=== PATIENT | male | born 1960 | race Caucasian/White ===

== ENCOUNTER 2018-09-10 23:55 | Emergency (ER) | payer SELFPAY ==
[2018-09-11] MEDS ORDERED: IBUPROFEN 400 MG TAB ONE (01:08)
--- NOTE | 2018-09-11 02:46 | ER ---
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 tylenol ak1 at 2230. Transition of care: patient was not received from another setting of care. Onset of symptoms is unknown. Risk Assessment: Do you want to hurt yourself or someone else? Patient reports no desire to harm self or others. Initial Sepsis Screen: Does the patient meet any 2 criteria? No. Patient's initial sepsis screen is negative. Does the patient have a suspected source of infection? No. Patient's initial sepsis screen is negative. Care prior to arrival: None. 00:50 Method Of Arrival: Ambulatory ak1 00:50 Acuity: JASON 4 ak1 Triage Assessment: 00:52 General: Appears in no apparent distress. Behavior is calm, cooperative. Pain: ak1 Complains of pain in headache. EENT: No signs and/or symptoms were reported regarding the EENT system. Neuro: Level of Consciousness is awake, alert, obeys commands, Oriented to person, place, time, situation, Highway Painter are equal bilaterally Moves all extremities. Gait is steady, Speech is normal. Cardiovascular: No deficits noted. Respiratory: Reports cough that is. GI: No signs and/or symptoms were reported involving the gastrointestinal system. : No signs and/or symptoms were reported regarding the genitourinary system. Derm: No signs and/or symptoms reported regarding the dermatologic system. Musculoskeletal: No signs and/or symptoms reported regarding the musculoskeletal system. Historical: - Allergies: 00:52 No Known Allergies; ak1 - Home Meds: 00:52 Lexapro 10 mg Oral tab 1 tab once daily [Active]; Xanax Oral as needed for Anxiety ak1 [Active]; - PMHx: 00:52 Anxiety; ak1 - PSHx: 00:52 Hernia repair; ak1 - Immunization history:: Adult Immunizations unknown, Flu vaccine is up to date. - Social history:: Smoking status: Patient/guardian denies using tobacco. - Ebola Screening: : No symptoms or risks identified at this time. Screenin:55 Abuse screen: Denies threats or abuse. Denies injuries from another. Nutritional ak1 screening: No deficits noted. Tuberculosis screening: No symptoms or risk factors identified. Fall Risk None identified. Assessment: 00:56 Reassessment: Patient appears in no apparent distress at this time. No changes from ak1 previously documented assessment. see triage assessment. 02:31 Reassessment: Patient appears in no apparent distress at this time. No changes from ak1 previously documented assessment. Patient is alert, oriented x 3, equal unlabored respirations, skin warm/dry/pink. pt took 1 gram of his home Tylenol. 03:00 Reassessment: Patient appears in no apparent distress at this time. No changes from ak1 previously documented assessment. Vital Signs: 00:08 BP 112 / 72; Pulse 92; Resp 18; Temp 101.5; Pulse Ox 92% on R/A; em1 00:52 BP 117 / 72; Pulse 87; Resp 18; Pulse Ox 96% on R/A; ak1 01:30 BP 125 / 69; Pulse 85; Resp 18; Pulse Ox 95% on R/A; ak1 01:39 Temp 100.6(O); ak1 03:00 BP 111 / 62; Pulse 82; Resp 18; Temp 99.1; Pulse Ox 95% on R/A; Pain 0/10; ak1 ED Course: 09/10 23:57 Patient arrived in ED. tl2 09/11 00:06 Fabio Baker NP is PHCP. pm1 00:06 Antelmo Salcedo MD is Attending Physician. pm1 00:26 Carmella Sandoval, ZAIN is Primary Nurse. ak1 00:27 Patient moved to radiology via wheelchair. sg4 00:34 X-ray completed. Patient tolerated procedure well. sg4 00:34 Patient moved back from radiology. sg4 00:34 Chest Pa And Lat (2 Views) XRAY In Process Unspecified. EDMS 00:51 Triage completed. ak1 00:52 Arm band placed on Patient placed in an exam room, on a stretcher, Patient notified of ak1 wait time. 00:55 Patient has correct armband on for positive identification. Bed in low position. Call ak1 light in reach. Adult w/ patient. Pulse ox on. NIBP on. 01:29 No provider procedures requiring assistance completed. ak1 03:05 Patient did not have IV access during this emergency room visit. ak1 Administered Medications: 01:04 Drug: Ibuprofen 800 mg Route: PO; ak1 01:26 Follow up: Response: No adverse reaction ak1 Outcome: 02:45 Discharge ordered by MD. pm1 03:05 Discharged to home ambulatory, with family. ak1 03:05 Condition: good 03:05 Discharge instructions given to patient, family, Instructed on discharge instructions, follow up and referral plans. Demonstrated understanding of instructions, follow-up care. 03:05 Patient left the ED. ak1 Signatures: Dispatcher [employer] EDCorby Alva em1 Carmella Sandoval RN RN ak1 Fabio Baker, SHANIQUA TREAD BOOKER pm1 Payton Moss RN RN tl2 Abigail Mora sg4
--- NOTE | 2018-09-11 02:46 | EDPHYS ---
Physician Documentation [facility] Name: Galen Steele Age: 58 yrs Sex: Male : 1960 Arrival Date: 09/10/2018 Time: 23:57 Bed 5 Private MD: ED Physician Antelmo Salcedo HPI: 09/11 01:56 This 58 yrs old Male presents to ER via Ambulatory with complaints of Fever. pm1 01:56 The patient reports fever, that was measured at 101 degrees Fahrenheit. Onset: The pm1 symptoms/episode began/occurred 3 day(s) ago. Associated signs and symptoms: Pertinent positives: cough, headache, sore throat, Pertinent negatives: abdominal pain, backache, chest pain, diarrhea, earache, skin rash, shortness of breath, vomiting. Severity of symptoms: in the emergency department the symptoms are unchanged. The patient has not recently seen a physician. Historical: - Allergies: 00:52 No Known Allergies; ak1 - Home Meds: 00:52 Lexapro 10 mg Oral tab 1 tab once daily [Active]; Xanax Oral as needed for Anxiety ak1 [Active]; - PMHx: 00:52 Anxiety; ak1 - PSHx: 00:52 Hernia repair; ak1 - Immunization history:: Adult Immunizations unknown, Flu vaccine is up to date. - Social history:: Smoking status: Patient/guardian denies using tobacco. - Ebola Screening: : No symptoms or risks identified at this time. ROS: 01:56 Eyes: Negative for injury, pain, redness, and discharge. pm1 01:56 Neck: Negative for injury, pain, and swelling, Cardiovascular: Negative for chest pain, palpitations, and edema. 01:56 Abdomen/GI: Negative for abdominal pain, nausea, vomiting, diarrhea, and constipation, Back: Negative for injury and pain, : Negative for injury, bleeding, discharge, and swelling, MS/Extremity: Negative for injury and deformity, Skin: Negative for injury, rash, and discoloration, Neuro: Negative for headache, weakness, numbness, tingling, and seizure. 01:56 Constitutional: Positive for fever, Negative for body aches, poor PO intake. 01:56 ENT: Positive for sore throat, Negative for ear pain, dental pain, difficulty swallowing, difficulty handling secretions, hoarseness. 01:56 Respiratory: Positive for cough, Negative for shortness of breath, sputum production, wheezing. Exam: 01:56 Constitutional: This is a well developed, well nourished patient who is awake, alert, pm1 and in no acute distress. Head/Face: Normocephalic, atraumatic. Eyes: Pupils equal round and reactive to light, extra-ocular motions intact. Lids and lashes normal. Conjunctiva and sclera are non-icteric and not injected. Cornea within normal limits. Periorbital areas with no swelling, redness, or edema. 01:56 Neck: Trachea midline, no thyromegaly or masses palpated, and no cervical lymphadenopathy. Supple, full range of motion without nuchal rigidity, or vertebral point tenderness. No Meningismus. Chest/axilla: Normal chest wall appearance and motion. Nontender with no deformity. No lesions are appreciated. Cardiovascular: Regular rate and rhythm with a normal S1 and S2. No gallops, murmurs, or rubs. Normal PMI, no JVD. No pulse deficits. Respiratory: Lungs have equal breath sounds bilaterally, clear to auscultation and percussion. No rales, rhonchi or wheezes noted. No increased work of breathing, no retractions or nasal flaring. Abdomen/GI: Soft, non-tender, with normal bowel sounds. No distension or tympany. No guarding or rebound. No evidence of tenderness throughout. Back: No spinal tenderness. No costovertebral tenderness. Full range of motion. Skin: Warm, dry with normal turgor. Normal color with no rashes, no lesions, and no evidence of cellulitis. MS/ Extremity: Pulses equal, no cyanosis. Neurovascular intact. Full, normal range of motion. 01:56 ENT: External ear(s): are unremarkable, Ear canal(s): are normal, TM's: are normal, Nose: is normal, Mouth: is normal, Posterior pharynx: Airway: no evidence of obstruction, patent, Tonsils: bilaterally enlarged, with erythema, no exudate, no ulcerations, erythema, peritonsillar mass, is not appreciated, pooling of secretions, is not appreciated. 01:56 Neuro: Orientation: is normal, Motor: is normal, moves all fours, Gait: is steady, at a normal pace, without difficulty. Vital Signs: 00:08 BP 112 / 72; Pulse 92; Resp 18; Temp 101.5; Pulse Ox 92% on R/A; em1 00:52 BP 117 / 72; Pulse 87; Resp 18; Pulse Ox 96% on R/A; ak1 01:30 BP 125 / 69; Pulse 85; Resp 18; Pulse Ox 95% on R/A; ak1 01:39 Temp 100.6(O); ak1 03:00 BP 111 / 62; Pulse 82; Resp 18; Temp 99.1; Pulse Ox 95% on R/A; Pain 0/10; ak1 MDM: 00:13 Patient medically screened. pm1 02:27 Data reviewed: vital signs. Data interpreted: Pulse oximetry: on room air is 95 %. pm1 Interpretation: normal. 02:45 Counseling: I had a detailed discussion with the patient and/or guardian regarding: the pm1 historical points, exam findings, and any diagnostic results supporting the discharge/admit diagnosis, lab results, radiology results, the need for outpatient follow up, to return to the emergency department if symptoms worsen or persist or if there are any questions or concerns that arise at home. 09/11 00:54 Order name: Flu; Complete Time: 01:30 pm1 09/11 01:52 Order name: Strep pm1 09/11 00:14 Order name: Chest Pa And Lat (2 Views) XRAY pm1 09/11 01:53 Order name: Group A Streptococcus Rapid Sc; Complete Time: 02:44 EDMS 09/11 02:33 Order name: Throat Culture EDMS Administered Medications: 01:04 Drug: Ibuprofen 800 mg Route: PO; ak1 :26 Follow up: Response: No adverse reaction ak1 Disposition: 05:49 Co-signature as Attending Physician, Antelmo Salcedo MD. pkl Disposition: 09/11/18 02:45 Discharged to Home. Impression: Acute upper respiratory infection, unspecified. - Condition is Stable. - Discharge Instructions: Antibiotic Resistance, Upper Respiratory Infection, Adult, Viral Respiratory Infection. - Medication Reconciliation Form, Thank You Letter, Antibiotic Education form. - Follow up: Emergency Department; When: As needed; Reason: Worsening of condition. Follow up: Private Physician; When: 2 - 3 days; Reason: Recheck today's complaints, Continuance of care, Re-evaluation by your physician. - Problem is new. - Symptoms have improved. Signatures: Dispatcher [employer] EDAntelmo Torres MD MD pkl Krenek, Amber RN RN ak1 Fabio Baker, SENIOR TELECOMMUNICATIONS ENGINEER SENIOR TELECOMMUNICATIONS ENGINEER pm1 Corrections: (The following items were deleted from the chart) 03:05 02:45 09/11/2018 02:45 Discharged to Home. Impression: Acute upper respiratory ak1 infection, unspecified. Condition is Stable. Discharge Instructions: Antibiotic Resistance, Upper Respiratory Infection, Adult, Viral Respiratory Infection. Forms are Medication Reconciliation Form, Thank You Letter, Antibiotic Education, Prescription Opioid Use. Follow up: Emergency Department; When: As needed; Reason: Worsening of condition. Follow up: Private Physician; When: 2 - 3 days; Reason: Recheck today's complaints, Continuance of care, Re-evaluation by your physician. Problem is new. Symptoms have improved. pm1
[2018-09-11 03:34] VITALS: O2SAT 95
[2018-09-11 03:37] VITALS: BP 111/62; TEMP 99.1
--- NOTE | 2018-09-11 08:14 | RAD REPORT ---
EXAM DESCRIPTION: RAD - Chest Pa And Lat (2 Views) - 09/11/2018 12:35 am CLINICAL HISTORY: Cough, fever COMPARISON: April 2013, March 2008 TECHNIQUE: PA and lateral views of the chest were obtained. FINDINGS: The lungs are clear of mass, consolidation or failure. Lung markings are fractionally inc reased over this long interval. This may be progressive interstitial disease or a minimal interstitia l infiltrate. This is a very minimal finding. Heart size is normal and central vasculature is within normal limits. No pleural effusion or pneumothorax seen. No acute bony finding noted. No aortic ab normality. IMPRESSION: No mass, consolidation or significant pulmonary process. Interstitial markings are fractionally increased over 2012. This could be progression in lung disease or a minimal interstitial edema or infiltrate.
== END 2018-09-11 03:05 | disposition home or self-care (01) ==
LOC: ER 23:55
DX: J06.9 Acute upper respiratory infection, unspecified (principal); R41.9 Unspecified symptoms and signs involving cognitive functions and awareness; Z79.899 Other long term (current) drug therapy
CPT/HCPCS: 71046; 87070; 87081; 87804; 99284

== ENCOUNTER 2018-09-14 11:00 | Emergency (ER) | payer SELFPAY ==
[2018-09-14 12:42] LABS: Absolute Monocytes 0.3 K/uL (0.1-1.3); Absolute Neutrophil 1.3 K/uL (1.8-8.0); Basophils % 0.6 % (0-1.3); Eosinophils % 0.4 % (0-4.4); Lymphocytes % 36.7 % (15.3-44.8); MPV 8.3 fL (7.6-11.3); Monocytes % 12.8 % (3.3-12.3); RBC Red Blood Cell Count 3.69 M/uL (4.33-5.43)
[2018-09-14 12:52] LABS: BUN Blood Urea Nitrogen 8 mg/dL (7-18); Bicarbonate 30 mmol/L (21-32); Glucose Level 118 mg/dL (74-106); Sodium Level 137 mmol/L (136-145)
[2018-09-14] MEDS ORDERED: KETOROLAC 30 MG/ML INJ ONE (13:09)
[2018-09-14] MEDS ORDERED: NA CHLORIDE 0.9% 1,000 ML ONE ×2 (13:09→14:49)
[2018-09-14 14:02] LABS: Blood Morphology Comment NOT SEEN (NOT SEEN); Platelet Estimate DECR; Urine White Blood Cell Casts OK
[2018-09-14] MEDS ORDERED: POTASSIUM CL SA 10 MEQ TAB PO ONE (14:55)
--- NOTE | 2018-09-14 17:10 | EDPHYS ---
Physician Documentation [facility] Name: Galen Steele Age: 58 yrs Sex: Male : 1960 Arrival Date: 09/14/2018 Time: 11:04 Bed 16 Private MD: Jb Cr T ED Physician Yasmin Grimaldo HPI: 09/14 11:48 This 58 yrs old Male presents to ER via Ambulatory with complaints of Fever, jmm Headache. 11:48 Onset: The symptoms/episode began/occurred gradually, 1 week(s) ago. Associated signs jmm and symptoms: Pertinent positives: cough, earache. This is a 58 year old male with a history of anxiety that presents to the ED with complaints of fever, headache, cough, eachache beginning 1 week ago. Patient was evaluated previously in the ED for similar symptoms. Patient denies neck pain on stiffness. Headache is mainly localized to the left anterior ear. Denies abdominal pain or vomiting. Historical: - Allergies: 11:19 No Known Allergies; sv - PMHx: 11:19 Anxiety; sv - PSHx: 11:19 Hernia repair; sv - Immunization history:: Flu vaccine is not up to date. - Social history:: Smoking status: Patient/guardian denies using tobacco. - Ebola Screening: : No symptoms or risks identified at this time. ROS: 11:48 Eyes: Negative for injury, pain, redness, and discharge. jmm 11:48 Neck: Negative for injury, pain, and swelling, Cardiovascular: Negative for chest pain, palpitations, and edema. 11:48 Constitutional: Positive for fever. 11:48 ENT: Positive for ear pain, sinus congestion, sore throat. 11:48 Respiratory: Positive for cough. 11:48 Neuro: Positive for headache. 11:48 All other systems are negative. Exam: 11:48 Head/Face: atraumatic. Eyes: EOMI, no conjunctival erythema appreciated ENT: Moist jmm Mucus Membranes Chest/axilla: Normal chest wall appearance and motion. 11:48 Constitutional: The patient appears in no acute distress, alert, awake. 11:48 ENT: TM's: erythema, that is mild, on the left, Posterior pharynx: Airway: normal, erythema, that is moderate. 11:48 Cardiovascular: Rate: normal, Rhythm: regular. 11:48 Respiratory: the patient does not display signs of respiratory distress, Respirations: normal, Breath sounds: are clear throughout. 11:48 Abdomen/GI: Inspection: abdomen appears normal, Bowel sounds: normal, Palpation: abdomen is soft and non-tender, in all quadrants. 11:48 Back: ROM is normal. 11:48 Musculoskeletal/extremity: ROM: intact in all extremities. 11:48 Skin: Appearance: Color: normal in color. 11:48 Neuro: Orientation: is normal, Mentation: is normal, Memory: is normal. 11:48 Psych: Behavior/mood is pleasant, cooperative. Vital Signs: 11:19 BP 102 / 72; Pulse 79; Resp 18; Temp 98.3; Pulse Ox 99% ; Weight 74.84 kg; Height 5 ft. sv 8 in. (172.72 cm); 11:30 BP 93 / 63; Pulse 75; Resp 18; Pulse Ox 97% on R/A; aj1 12:30 BP 97 / 62; Pulse 79; Resp 18; Pulse Ox 98% on R/A; aj1 13:13 BP 97 / 67; Pulse 82; Resp 18; Pulse Ox 97% on R/A; aj1 14:51 BP 119 / 74; Pulse 84; Resp 16; Temp 100.3(O); Pulse Ox 97% on R/A; aj1 16:34 BP 148 / 81; Pulse 94; Resp 18; Pulse Ox 95% on R/A; aj1 11:19 Body Mass Index 25.09 (74.84 kg, 172.72 cm) sv MDM: 11:48 Patient medically screened. petra 17:08 Data reviewed: vital signs, nurses notes. Counseling: I had a detailed discussion with guzman the patient and/or guardian regarding: the historical points, exam findings, and any diagnostic results supporting the discharge/admit diagnosis, lab results, radiology results, the need for outpatient follow up, to return to the emergency department if symptoms worsen or persist or if there are any questions or concerns that arise at home. 17:08 ED course: Patient is alert and non toxic in appearance in the ED. Neck is supple. I do guzman currently suspect meningitis. family and patient given return precautions for neck stiffness, shortness of breath, abdominal pain, vomiting, ect. family understood and agrees with the plan of care. . 09/14 12:07 Order name: Influenza Screen (A ; Complete Time: 12:50 EDMS 09/14 12:07 Order name: Group A Streptococcus Rapid Sc; Complete Time: 12:50 EDMS 09/14 12:37 Order name: Basic Metabolic Panel; Complete Time: 13:15 EDMS 09/14 12:37 Order name: Procalcitonin; Complete Time: 13:15 EDMS 09/14 12:37 Order name: Lactate; Complete Time: 13:15 EDMS 09/14 12:37 Order name: CBC with Automated Diff; Complete Time: 14:08 EDMS 09/14 12:37 Order name: Throat Culture EDMS 09/14 12:52 Order name: CBC Smear Scan; Complete Time: 14:08 EDMS 09/14 11:56 Order name: Saline Lock; Complete Time: 12:31 [facility] 09/14 15:58 Order name: Lactate Sepsis 2 HR Follow-up; Complete Time: 16:10 EDMS Administered Medications: 13:09 Drug: NS 0.9% 1000 ml Route: IV; Rate: 1000 ml; Site: left antecubital; aj1 14:10 Follow up: IV Status: Completed infusion; IV Intake: 1000ml aj1 13:09 Drug: Ketorolac 30 mg Route: IVP; Site: left antecubital; aj1 14:10 Follow up: Response: No adverse reaction aj1 14:51 Drug: NS 0.9% 1000 ml Route: IV; Rate: 1000 ml; Site: left antecubital; aj1 16:00 Follow up: IV Status: Completed infusion; IV Intake: 1000ml aj1 14:51 Drug: Potassium Chloride 40 mEq Route: PO; aj1 15:30 Follow up: Response: No adverse reaction aj1 17:29 Not Given (Patient Refused): Tylenol 650 mg PO once aj1 Disposition: 17:20 Co-signature as Attending Physician, Yasmin Grimaldo MD. ma2 Disposition: 09/14/18 17:09 Discharged to Home. Impression: Acute bronchitis. - Condition is Stable. - Discharge Instructions: Acute Bronchitis, Adult. - Prescriptions for cefdinir 300 mg Oral capsule - take 1 capsule by ORAL route every 12 hours for 10 days; 20 capsule. - Medication Reconciliation Form, Thank You Letter, Antibiotic Education, Prescription Opioid Use form. - Follow up: Jb Cr MD; When: 2 - 3 days; Reason: Recheck today's complaints, Continuance of care, Re-evaluation by your physician. Addendum: 09/16/2018 10:05 Addendum: Called Ms. Steele at [phone]. She was very upset that nothing was done k dr about her husbands illness on the first visit. I indicated that on the second visit that more testing was done and that all of that was negative. I asked her what else she had wanted us to do. She indicated again that she had wanted more done including fluids and abx on the first visit. Today, she indicates that her is still having fever to 102. She stated that they had an appointment with Dr. Cr at 11:30 today. She felt that Dr. Cr would likely send the patient back to the ED. I offered to see the patient today should she return. Left message for Dr. Cr to call me regarding the two recent prior ED visits. . Signatures: Dispatcher [employer] EDMS Yodit Rachel RN RN aj1 Sofia Vogt RN RN Aj Pastor MD MD [facility] Michael Gupta PA PA Yasmin Sanchez MD MD ma2 Corrections: (The following items were deleted from the chart) 09/14 17:33 17:09 09/14/2018 17:09 Discharged to Home. Impression: Acute bronchitis. Condition is aj1 Stable. Forms are Medication Reconciliation Form, Thank You Letter, Antibiotic Education, Prescription Opioid Use. Follow up: Jb Cr; When: 2 - 3 days; Reason: Recheck today's complaints, Continuance of care, Re-evaluation by your physician. guzman
--- NOTE | 2018-09-14 17:10 | ER ---
Nurse's Notes [facility] Name: Galen Steele Age: 58 yrs Sex: Male : 1960 Arrival Date: 09/14/2018 Time: 11:04 Bed 16 Private MD: Jb Cr T Diagnosis: Acute bronchitis Presentation: 09/14 11:17 Presenting complaint: Patient states: headache, and zackary ear pain, and fever Tmax 103.8 sv started Sunday. Transition of care: patient was not received from another setting of care. Onset of symptoms was September 08, 2018. Care prior to arrival: None. 11:17 Method Of Arrival: Ambulatory sv 11:17 Acuity: JASON 3 sv 15:57 Risk Assessment: Do you want to hurt yourself or someone else? Patient reports no aj1 desire to harm self or others. Initial Sepsis Screen: Does the patient meet any 2 criteria? No. Patient's initial sepsis screen is negative. Does the patient have a suspected source of infection? Yes: Productive cough/pneumonia. Triage Assessment: 17:32 Headache History: The patient has had previous headaches and this one is different than aj1 previous episodes. General: Appears in no apparent distress. General: Appears Behavior is calm, cooperative. Pain: Pain began 2-3 days ago. Also complains of no other associated symptoms. Historical: - Allergies: 11:19 No Known Allergies; sv - PMHx: 11:19 Anxiety; sv - PSHx: 11:19 Hernia repair; sv - Immunization history:: Flu vaccine is not up to date. - Social history:: Smoking status: Patient/guardian denies using tobacco. - Ebola Screening: : No symptoms or risks identified at this time. Screenin:30 Abuse screen: Denies threats or abuse. Denies injuries from another. Nutritional aj1 screening: No deficits noted. Tuberculosis screening: No symptoms or risk factors identified. 15:58 Fall Risk None identified. aj1 Assessment: 11:30 General: Appears in no apparent distress. uncomfortable, Behavior is calm, cooperative, aj1 appropriate for age. Pain: Complains of pain in face, right ear and left ear Pain does not radiate. Pain currently is 5 out of 10 on a pain scale. Neuro: Level of Consciousness is awake, alert, obeys commands, Oriented to person, place, time, situation, Speech is normal, Facial symmetry appears normal, Reports headache. Cardiovascular: Patient's skin is warm and dry. Respiratory: Reports cough that is persistent Airway is patent Respiratory effort is even, unlabored, Respiratory pattern is regular, symmetrical, Breath sounds are clear bilaterally. GI: Patient currently denies diarrhea, nausea, vomiting. : No signs and/or symptoms were reported regarding the genitourinary system. EENT: Reports nasal congestion ear pain. Derm: No signs and/or symptoms reported regarding the dermatologic system. Skin is pink, warm \T\ dry. normal. Musculoskeletal: No signs and/or symptoms reported regarding the musculoskeletal system. Circulation, motion, and sensation intact. 12:30 Reassessment: Patient appears in no apparent distress at this time. No changes from aj1 previously documented assessment. Patient and/or family updated on plan of care and expected duration. Pain level reassessed. Patient is alert, oriented x 3, equal unlabored respirations, skin warm/dry/pink. 13:13 Reassessment: Patient appears in no apparent distress at this time. No changes from aj1 previously documented assessment. Patient and/or family updated on plan of care and expected duration. Pain level reassessed. Patient is alert, oriented x 3, equal unlabored respirations, skin warm/dry/pink. 14:29 Reassessment: Patient appears in no apparent distress at this time. No changes from aj1 previously documented assessment. Patient and/or family updated on plan of care and expected duration. Pain level reassessed. Patient is alert, oriented x 3, equal unlabored respirations, skin warm/dry/pink. 15:30 Reassessment: Patient appears in no apparent distress at this time. No changes from aj1 previously documented assessment. Patient and/or family updated on plan of care and expected duration. Pain level reassessed. Patient is alert, oriented x 3, equal unlabored respirations, skin warm/dry/pink. 16:33 Reassessment: Patient appears in no apparent distress at this time. No changes from aj1 previously documented assessment. Patient and/or family updated on plan of care and expected duration. Pain level reassessed. Patient is alert, oriented x 3, equal unlabored respirations, skin warm/dry/pink. Vital Signs: 11:19 BP 102 / 72; Pulse 79; Resp 18; Temp 98.3; Pulse Ox 99% ; Weight 74.84 kg; Height 5 ft. sv 8 in. (172.72 cm); 11:30 BP 93 / 63; Pulse 75; Resp 18; Pulse Ox 97% on R/A; aj1 12:30 BP 97 / 62; Pulse 79; Resp 18; Pulse Ox 98% on R/A; aj1 13:13 BP 97 / 67; Pulse 82; Resp 18; Pulse Ox 97% on R/A; aj1 14:51 BP 119 / 74; Pulse 84; Resp 16; Temp 100.3(O); Pulse Ox 97% on R/A; aj1 16:34 BP 148 / 81; Pulse 94; Resp 18; Pulse Ox 95% on R/A; aj1 11:19 Body Mass Index 25.09 (74.84 kg, 172.72 cm) sv ED Course: 11:04 Patient arrived in ED. sb2 11:04 Jb Cr MD is Private Physician. sb2 11:19 Triage completed. sv 11:22 Arm band placed on. sv 11:30 Patient has correct armband on for positive identification. Bed in low position. Call aj1 light in reach. Side rails up X 1. 11:30 No provider procedures requiring assistance completed. aj1 11:31 Michael Gupta PA is PHCP. jm 11:31 Yasmin Grimaldo MD is Attending Physician. jmm 11:34 Yodit Rachel, ZAIN is Primary Nurse. aj1 11:55 Inserted saline lock: 18 gauge in left antecubital area, using aseptic technique. Blood aj1 collected. 15:33 Repeat lab(s) drawn. by co, sent to lab. 3 17:09 Jb Cr MD is Referral Physician. jmm 17:31 IV discontinued, intact, bleeding controlled, No redness/swelling at site. Pressure aj1 dressing applied. Administered Medications: 13:09 Drug: NS 0.9% 1000 ml Route: IV; Rate: 1000 ml; Site: left antecubital; aj1 14:10 Follow up: IV Status: Completed infusion; IV Intake: 1000ml aj1 13:09 Drug: Ketorolac 30 mg Route: IVP; Site: left antecubital; aj1 14:10 Follow up: Response: No adverse reaction aj1 14:51 Drug: NS 0.9% 1000 ml Route: IV; Rate: 1000 ml; Site: left antecubital; aj1 16:00 Follow up: IV Status: Completed infusion; IV Intake: 1000ml aj1 14:51 Drug: Potassium Chloride 40 mEq Route: PO; aj1 15:30 Follow up: Response: No adverse reaction aj1 17:29 Not Given (Patient Refused): Tylenol 650 mg PO once aj1 Intake: 14:10 IV: 1000ml; Total: 1000ml. aj1 16:00 IV: 1000ml; Total: 2000ml. aj1 Outcome: 17:09 Discharge ordered by MD. hinds 17:32 Discharged to home ambulatory. aj1 17:32 Condition: good 17:32 Discharge instructions given to patient, Instructed on discharge instructions, follow up and referral plans. medication usage, Demonstrated understanding of instructions, follow-up care, medications, Prescriptions given X 1. 17:33 Patient left the ED. aj Signatures: Yodit Rachel RN RN aj1 Sofia Vogt RN RN Michael Gupta PA PA jm Malena Hansen 3 Negra Gomez sb2 Corrections: (The following items were deleted from the chart) 11:19 11:17 Presenting complaint: Patient states: headache and fever Tmax 103.8 started sv Sunday. sv 11:22 11:19 Temp 98.3F; Height 5 ft. 8 in.; sv sv
[2018-09-14 17:52] VITALS: TEMP 100.3
[2018-09-14 17:53] VITALS: BP 148/81; O2SAT 95
== END 2018-09-14 17:33 | disposition home or self-care (01) ==
LOC: ER 11:00
DX: J20.9 Acute bronchitis, unspecified (principal)
CPT/HCPCS: 36415; 80048; 83605; 84145; 85025; 87070; 87081; 87804; 96361; 96374; 99284; J7030

== ENCOUNTER 2018-09-16 13:16 | Inpatient (IN) | payer SELFPAY ==
[2018-09-16 15:39] LABS: Absolute Lymphocytes (CBC) 1.7 K/uL (0.7-4.9); Absolute Monocytes 0.5 K/uL (0.1-1.3); Absolute Neutrophil 2.2 K/uL (1.8-8.0); Basophils % 0.6 % (0-1.3); Eosinophils % 0.5 % (0-4.4); Hematocrit 35.6 % (39.6-49.0); Lymphocytes % 39.4 % (15.3-44.8); MPV 8.8 fL (7.6-11.3); Monocytes % 10.5 % (3.3-12.3); RBC Red Blood Cell Count 3.86 M/uL (4.33-5.43)
[2018-09-16 15:42] LABS: Protime INR 1.16
[2018-09-16] MEDS ORDERED: levoFLOXacin 500 MG TAB ONE (15:43)
[2018-09-16] MEDS ORDERED: ACETAMINOPHEN 500 MG TAB ONE (15:43)
[2018-09-16] MEDS ORDERED: NA CHLORIDE 0.9% 2,000 ML ONE (15:43)
--- NOTE | 2018-09-16 15:43 | RAD REPORT ---
EXAM DESCRIPTION: RAD - Chest Single View - 09/16/2018 2:50 pm CLINICAL HISTORY: Fever, upper respiratory infection, hypotension COMPARISON: September 11 TECHNIQUE: AP portable chest image was obtained 1441 hours . FINDINGS: Lung volumes are normal. No focal consolidations seen. Lung markings have increased slight ly from comparison. Failure/volume overload are not suspected. Heart and vasculature are normal. No m easurable pleural effusion and no pneumothorax. No acute bony abnormality seen. No acute aortic findi ngs suspected. IMPRESSION: Suspected right base interstitial pneumonia.
--- NOTE | 2018-09-16 15:50 | RAD REPORT ---
EXAM DESCRIPTION: CT - Head Brain Wo Cont - 09/16/2018 3:42 pm CLINICAL HISTORY: Hypotension, syncope, dizziness COMPARISON: CT head April 2013 TECHNIQUE: Axial 5 mm thick images of the head were obtained without IV contrast. All CT scans are performed using dose optimization technique as appropriate and may include automated exposure control or mA/KV adjustment according to patient size. FINDINGS: No intracranial hemorrhage, mass, edema or shift of mid-line structures. No acute infarcti on changes seen. No cortical edema or sulcal effacement. Mild atrophy changes are present. Patient do es have dense for age arterial tree calcifications. Ventricles are in proportion to volume loss. Find ings are new or progressive from 2012. Mastoid air cells and visualized portions of the paranasal sinuses are clear. No acute bony findings. IMPRESSION: No acute intracranial finding. Mild atrophy changes are present new or progressive from 2012. Dense for age arterial tree calcifications.
[2018-09-16 16:05] LABS: Urine Blood NEGATIVE (NEG); Urine Glucose NEGATIVE (NEG); Urine Protein TRACE (NEG)
[2018-09-16 16:05] LABS: Urine Bacteria <20 /HPF (NONE SEEN); Urine Culture Reflex Order NOT NEEDED; Urine Mucus HEAVY /HPF (NONE SEEN); Urine RBC <5 /HPF (NONE SEEN)
[2018-09-16 16:07] LABS: ALT/SGPT 107 U/L (12-78); AST/SGOT 96 U/L (15-37); Albumin 2.5 g/dL (3.4-5.0); Alkaline Phosphatase 77 U/L (45-117); BUN Blood Urea Nitrogen 7 mg/dL (7-18); Bicarbonate 29 mmol/L (21-32); Bilirubin Direct 0.3 mg/dL (0-0.2); Bilirubin Total 0.5 mg/dL (0.2-1.0); CKMB Creatine Kinase MB < 1.0 ng/mL (0.3-3.6); Creatine Phosphokinase 51 U/L (39-308); Glucose Level 121 mg/dL (74-106); Lipase 128 U/L (73-393); Protein, Total 6.6 g/dL (6.4-8.2); Sodium Level 139 mmol/L (136-145); Troponin (Emerg Dept Use Only) 0.06 ng/mL (0.0-0.045)
[2018-09-16 16:13] LABS: Potassium 2.8 mmol/L (3.5-5.1)
[2018-09-16] MEDS ORDERED: VANCOMYCIN 1 GM/VIAL ONE (16:28)
[2018-09-16] MEDS ORDERED: CEFTRIAXONE/SWI 1gm 1 GM/10 ML SYR ONE (16:29)
[2018-09-16] MEDS ORDERED: NA CHLORIDE 0.9% 500 ML ONE (16:29)
[2018-09-16] MEDS ORDERED: IBUPROFEN 400 MG TAB ONE (16:40)
[2018-09-16] MEDS ORDERED: IBUPROFEN 200 MG TAB PO ONE (16:41)
[2018-09-16] MEDS ORDERED: POTASSIUM CL SA 10 MEQ TAB PO ONE (17:07)
[2018-09-16] MEDS ORDERED: KCL 20 MEQ/100 mL IVPB 20 MEQ/100 ML BAG IV ONE (17:07)
--- NOTE | 2018-09-16 18:25 | ER ---
Nurse's Notes [facility] Name: Galen Steele Age: 58 yrs Sex: Male : 1960 Arrival Date: 09/16/2018 Time: 13:20 Bed 26 Private MD: Jb Cr T Diagnosis: Pneumonia, unspecified organism;Sepsis, unspecified organism Presentation: 09/16 13:24 Presenting complaint: Patient states: PCP sent me here, my BP is low, at the clinic it hj was, 96/54 today; reports dizziness and low energy; denies chest pain; reports ear pain; on triage BP- 115/73;. Transition of care: patient was not received from another setting of care. Onset of symptoms was September 16, 2018. Risk Assessment: Do you want to hurt yourself or someone else? Patient reports no desire to harm self or others. Initial Sepsis Screen: Does the patient meet any 2 criteria? No. Patient's initial sepsis screen is negative. Does the patient have a suspected source of infection? No. Patient's initial sepsis screen is negative. Care prior to arrival: None. 13:24 Method Of Arrival: Ambulatory 13:24 Acuity: JASON 3 hj Triage Assessment: 13:28 General: Appears in no apparent distress. uncomfortable, Behavior is calm, cooperative, hj appropriate for age. Pain: Complains of pain in head. Historical: - Allergies: 13:28 No Known Allergies; hj - Home Meds: 13:28 Lexapro 10 mg Oral tab 1 tab once daily [Active]; Xanax Oral as needed for Anxiety hj [Active]; - PMHx: 13:28 Anxiety; hj - PSHx: 13:28 Hernia repair; hj - Immunization history:: Adult Immunizations up to date. - Social history:: Smoking status: Patient/guardian denies using tobacco, Patient uses alcohol. - Ebola Screening: : Patient negative for fever greater than or equal to 101.5 degrees Fahrenheit, and additional compatible Ebola Virus Disease symptoms Patient denies exposure to infectious person Patient denies travel to an Ebola-affected area in the 21 days before illness onset. Screenin:28 Abuse screen: Denies threats or abuse. Denies injuries from another. Nutritional hj screening: No deficits noted. Tuberculosis screening: No symptoms or risk factors identified. Fall Risk None identified. Assessment: 15:15 General: Appears distressed, uncomfortable, slender, well groomed, well developed, well tl3 nourished, Behavior is calm, appropriate for age, listless. Pain: Complains of pain in chest. Neuro: Level of Consciousness is awake, alert, obeys commands. Cardiovascular: Patient's skin is warm and dry. Respiratory: Airway is patent Respiratory effort is even, unlabored, Respiratory pattern is symmetrical, tachypnea. Respiratory: Reports shortness of breath cough that is hacking, persistent. GI: No signs and/or symptoms were reported involving the gastrointestinal system. : No signs and/or symptoms were reported regarding the genitourinary system. EENT: No signs and/or symptoms were reported regarding the EENT system. Derm: No signs and/or symptoms reported regarding the dermatologic system. 16:30 Reassessment: No changes from previously documented assessment. Patient and/or family tl3 updated on plan of care and expected duration. Pain level reassessed. Patient is alert, oriented x 3, equal unlabored respirations, skin warm/dry/pink. 18:24 Reassessment: No changes from previously documented assessment. Patient and/or family tl3 updated on plan of care and expected duration. Pain level reassessed. Patient is alert, oriented x 3, equal unlabored respirations, skin warm/dry/pink. 18:26 Reassessment: charlie crowley provided. tl3 Vital Signs: 13:28 BP 115 / 73; Pulse 85; Resp 18; Temp 98.5(TE); Pulse Ox 96% on R/A; Weight 65.77 kg; hj Height 5 ft. 8 in. (172.72 cm); Pain 5/10; 14:20 BP 129 / 83; Pulse 99; Resp 18 S; Temp 100.0(O); Pulse Ox 95% on R/A; iw 15:30 Temp 103.1; tl3 16:34 Pulse 105; Resp 18; Temp 103.4(O); Pulse Ox 94% on R/A; tl3 16:35 BP 131 / 74; tl3 13:28 Body Mass Index 22.05 (65.77 kg, 172.72 cm) ED Course: 13:20 Patient arrived in ED. mr 13:20 Jb Cr MD is Private Physician. mr 13:21 Aj Pastor MD is Attending Physician. kdr 13:27 Triage completed. hj 13:28 Arm band placed on left wrist. hj 13:28 Patient has correct armband on for positive identification. Placed in gown. Bed in low hj position. Call light in reach. Side rails up X 1. Adult w/ patient. 14:37 Gi Jin, RN is Primary Nurse. tl3 14:42 X-ray completed. Portable x-ray completed in exam room. Patient tolerated procedure jb2 well. 14:50 Chest Single View XRAY In Process Unspecified. EDMS 15:[address] vm2 15:40 Inserted saline lock: [address] gauge[address] tl3 15:41 CT completed. Patient tolerated procedure well. Patient moved back from CT. vm2 15:42 CT Head Brain wo Cont In Process Unspecified. EDMS 16:10 Basic Metabolic Panel Sent. tl3 16:10 Blood Culture Adult (2) Sent. tl3 16:10 CBC with Diff Sent. tl3 16:10 Ckmb Sent. tl3 18:23 Veronica Dubose MD is Hospitalizing Provider. kdr 18:24 No provider procedures requiring assistance completed. tl3 18:25 Head of bed elevated. tl3 20:48 Patient admitted, IV remains in place. tl3 Administered Medications: 15:00 Drug: LevaQUIN 500 mg Route: PO; tl3 16:11 Follow up: Response: No adverse reaction tl3 15:00 Drug: Tylenol 1000 mg Route: PO; tl3 16:11 Follow up: Response: No adverse reaction tl3 16:11 Drug: NS 0.9% (30 ml/kg) 30 ml/kg Route: IV; Rate: bolus; Site: right forearm; tl3 Delivery: Primary tubing; 16:15 Follow up: IV Status: Completed infusion; IV Intake: 2000ml tl3 16:34 Drug: vancoMYCIN 1.5 grams Route: IVPB; Rate: calculated rate; Infused Over: 2 hrs; tl3 Site: right forearm; Delivery: Primary tubing; 19:33 Follow up: IV Status: Completed infusion; IV Intake: 500ml tl3 16:34 Drug: Rocephin - (cefTRIAXone) 1 grams Route: IVPB; Infused Over: 5 mins; Site: right tl3 forearm; 17:10 Follow up: IV Status: Completed infusion; IV Intake: 20ml tl3 16:35 Drug: Ibuprofen 600 mg Route: PO; tl3 17:09 Follow up: Response: No adverse reaction tl3 17:10 Not Given (Duplicate Order): NS 0.9% (30 ml/kg) 30 ml/kg IV at bolus once; Sepsis tl3 Protocol 17:11 Drug: Potassium Chloride 40 mEq Route: PO; tl3 18:04 Follow up: Response: No adverse reaction tl3 17:12 Drug: Potassium Chloride 20 mEq Route: IV; Rate: calculated rate; Site: right forearm; tl3 18:03 Follow up: IV Status: Completed infusion; IV Intake: 100ml tl3 Point of Care Testing: Blood Glucose: 15:00 Blood Glucose: 120 mg/dL; tl3 Ranges: Intake: 16:15 IV: 2000ml; Total: 2000ml. tl3 17:10 IV: 20ml; Total: 2020ml. tl3 18:03 IV: 100ml; Total: 2120ml. tl3 19:33 IV: 500ml; Total: 2620ml. tl3 Outcome: 18:24 Decision to Hospitalize by Provider. kdr 20:48 Admitted to Med/surg accompanied by nurse, via wheelchair, with chart, Report called to tl3 Soila 20:48 Condition: stable 20:48 Instructed on the need for admit. 20:48 Patient left the ED. tl3 Signatures: Dispatcher [employer] EDMS Aj Pastor MD MD [facility] [address] Chris, Chi Putnam jb2 Genia Peres, ZAIN [place] Cj Kruger RN RN Sigrid Torres [facility] Gi Jin RN RN tl3 Corrections: (The following items were deleted from the chart) 16:34 15:30 Pulse 105bpm; Resp 18bpm; Pulse Ox 94% RA; Temp 103.4F Oral; tl3 tl3
--- NOTE | 2018-09-16 18:25 | EDPHYS ---
Physician Documentation [facility] Name: Galen Steele Age: 58 yrs Sex: Male : 1960 Arrival Date: 09/16/2018 Time: 13:20 Bed 26 Private MD: Jb Cr T ED Physician Aj Pastor HPI: 09/16 14:30 This 58 yrs old Male presents to ER via Ambulatory with complaints of Blood kdr Pressure Problem. 14:30 This is the third ED visit since the . The patient states that he has been ill for kdr the last nine days. On the first visit he had a URI w/u and on the second visit, he had a sepsis w/u. On the initial visit, he had non-specific changes on the CXR but no obvious pneumonia. On the second visit, the CXR was not repeated and the Lactate was borderline on the first draw and negative on the second draw. The patient o/w appeared to be stable and with appropriate and progressive w/u's at the time they were seen by the providers here. The patient has continued to spike fevers on a regular basis to 103. He also has shaking chills and rigors. When seen in Dr. Cr's office today, his SBP was noted to be in the mid 90's and so he was sent to the ED for further evaluation. The patient ambulated to his room without apparent difficulty.. Historical: - Allergies: 13:28 No Known Allergies; hj - Home Meds: 13:28 Lexapro 10 mg Oral tab 1 tab once daily [Active]; Xanax Oral as needed for Anxiety hj [Active]; - PMHx: 13:28 Anxiety; hj - PSHx: 13:28 Hernia repair; hj - Immunization history:: Adult Immunizations up to date. - Social history:: Smoking status: Patient/guardian denies using tobacco, Patient uses alcohol. - Ebola Screening: : Patient negative for fever greater than or equal to 101.5 degrees Fahrenheit, and additional compatible Ebola Virus Disease symptoms Patient denies exposure to infectious person Patient denies travel to an Ebola-affected area in the 21 days before illness onset. ROS: 14:38 Constitutional: The patient has had fever, chills, andvweight loss, Eyes: Negative for kdr injury, pain, redness, and discharge, ENT: Negative for injury, pain, and discharge, Neck: Negative for injury, pain, and swelling, Cardiovascular: Negative for chest pain, palpitations, and edema, Respiratory: Negative for shortness of breath, cough, wheezing, and pleuritic chest pain, Abdomen/GI: Negative for abdominal pain, nausea, vomiting, diarrhea, and constipation, Back: Negative for injury and pain, : Negative for injury, bleeding, discharge, and swelling, MS/Extremity: Negative for injury and deformity, Skin: Negative for injury, rash, and discoloration, Neuro: Negative for headache, weakness, numbness, tingling, and seizure activity. Psych: Negative for depression, anxiety, suicide ideation, homicidal ideation, and hallucinations, Allergy/Immunology: Negative for hives, rash, and allergies, Endocrine: Negative for neck swelling, polydipsia, polyuria, polyphagia, and marked weight changes, Hematologic/Lymphatic: Negative for swollen nodes, abnormal bleeding, and unusual bruising. Exam: 14:38 Constitutional: This is a well developed, well nourished patient who is awake, alert, kdr and in no acute distress. Head/Face: Normocephalic, atraumatic. Eyes: Pupils equal round and reactive to light, extra-ocular motions intact. Lids and lashes normal. Conjunctiva and sclera are non-icteric and not injected. Cornea within normal limits. Periorbital areas with no swelling, redness, or edema. Neck: Trachea midline, no thyromegaly or masses palpated, and no cervical lymphadenopathy. Supple, full range of motion without nuchal rigidity, or vertebral point tenderness. No Meningismus. Chest/axilla: Normal chest wall appearance and motion. Nontender with no deformity. No lesions are appreciated. Cardiovascular: Regular rate and rhythm with a normal S1 and S2. No gallops, murmurs, or rubs. Normal PMI, no JVD. No pulse deficits. Respiratory: Lungs have equal breath sounds bilaterally, clear to auscultation and percussion. No rales, rhonchi or wheezes noted. No increased work of breathing, no retractions or nasal flaring. Abdomen/GI: Soft, non-tender, with normal bowel sounds. No distension or tympany. No guarding or rebound. No evidence of tenderness throughout. Back: No spinal tenderness. No costovertebral tenderness. Full range of motion. Skin: Warm, dry with normal turgor. Normal color with no rashes, no lesions, and no evidence of cellulitis. MS/ Extremity: Pulses equal, no cyanosis. Neurovascular intact. Full, normal range of motion. Neuro: Awake and alert, GCS 15, oriented to person, place, time, and situation. Cranial nerves II-XII grossly intact. Motor strength 5/5 in all extremities. Sensory grossly intact. Cerebellar exam normal. Normal gait. Psych: Awake, alert, with orientation to person, place and time. Behavior, mood, and affect are within normal limits. Vital Signs: 13:28 BP 115 / 73; Pulse 85; Resp 18; Temp 98.5(TE); Pulse Ox 96% on R/A; Weight 65.77 kg; hj Height 5 ft. 8 in. (172.72 cm); Pain 5/10; 14:20 BP 129 / 83; Pulse 99; Resp 18 S; Temp 100.0(O); Pulse Ox 95% on R/A; iw 15:30 Temp 103.1; tl3 16:34 Pulse 105; Resp 18; Temp 103.4(O); Pulse Ox 94% on R/A; tl3 16:35 BP 131 / 74; tl3 13:28 Body Mass Index 22.05 (65.77 kg, 172.72 cm) hj MDM: 14:38 Data reviewed: vital signs, nurses notes. kdr 18:24 Patient medically screened. [facility] 09/16 14:17 Order name: Basic Metabolic Panel [facility] 09/16 14:17 Order name: Blood Culture Adult (2) [facility] 09/16 14:17 Order name: CBC with Diff [facility] 09/16 14:17 Order name: Ckmb [facility] 09/16 14:17 Order name: CPK; Complete Time: 16:44 [facility] 09/16 14:17 Order name: Lactate; Complete Time: 16:02 [facility] 09/16 14:17 Order name: LFT's; Complete Time: 16:44 [facility] 09/16 14:17 Order name: Lipase; Complete Time: 16:44 [facility] 09/16 14:17 Order name: Procalcitonin [facility] 09/16 14:17 Order name: Protime (+inr); Complete Time: 16:02 [facility] 09/16 14:17 Order name: Ptt, Activated; Complete Time: 16:02 [facility] 09/16 14:17 Order name: Troponin (emerg Dept Use Only); Complete Time: 16:44 kdr 09/16 14:17 Order name: Urine Microscopic Only; Complete Time: 16:44 [facility] 09/16 14:18 Order name: Basic Metabolic Panel; Complete Time: 16:44 [facility] 09/16 14:17 Order name: Chest Single View XRAY; Complete Time: 16:02 [facility] 09/16 14:18 Order name: Blood Culture [facility] 09/16 14:18 Order name: CBC with Automated Diff; Complete Time: 16:02 [facility] 09/16 14:18 Order name: CKMB Creatine Kinase MB; Complete Time: 16:44 [facility] 09/16 15:30 Order name: CT Head Brain wo Cont; Complete Time: 16:02 [facility] 09/16 15:55 Order name: Urine Dipstick--Ancillary (enter results); Complete Time: 16:44 09/16 16:03 Order name: Glucose, Ancillary Testing; Complete Time: 16:44 [facility] 09/16 17:49 Order name: Lactate [facility] 09/16 20:13 Order name: Lactate Sepsis 2 HR Follow-up [facility] 09/16 14:17 Order name: Accucheck; Complete Time: 15:31 kdr 09/16 14:17 Order name: Cardiac monitoring; Complete Time: 15:31 [facility] 09/16 14:17 Order name: EKG - Nurse/Tech; Complete Time: 14:38 [facility] 09/16 14:17 Order name: IV Saline Lock - Large Bore; Complete Time: 15:32 kdr 09/16 14:17 Order name: Labs collected and sent; Complete Time: 15:32 [facility] 09/16 14:17 Order name: O2 Per Protocol; Complete Time: 16:10 kdr 09/16 14:17 Order name: O2 Sat Monitoring; Complete Time: 16:10 kdr 09/16 14:17 Order name: Urine Dipstick-Ancillary (obtain specimen); Complete Time: 16:10 kdr Administered Medications: 15:00 Drug: LevaQUIN 500 mg Route: PO; tl3 16:11 Follow up: Response: No adverse reaction tl3 15:00 Drug: Tylenol 1000 mg Route: PO; tl3 16:11 Follow up: Response: No adverse reaction tl3 16:11 Drug: NS 0.9% (30 ml/kg) 30 ml/kg Route: IV; Rate: bolus; Site: right forearm; tl3 Delivery: Primary tubing; 16:15 Follow up: IV Status: Completed infusion; IV Intake: 2000ml tl3 16:34 Drug: vancoMYCIN 1.5 grams Route: IVPB; Rate: calculated rate; Infused Over: 2 hrs; tl3 Site: right forearm; Delivery: Primary tubing; 19:33 Follow up: IV Status: Completed infusion; IV Intake: 500ml tl3 16:34 Drug: Rocephin - (cefTRIAXone) 1 grams Route: IVPB; Infused Over: 5 mins; Site: right tl3 forearm; 17:10 Follow up: IV Status: Completed infusion; IV Intake: 20ml tl3 16:35 Drug: Ibuprofen 600 mg Route: PO; tl3 17:09 Follow up: Response: No adverse reaction tl3 17:10 Not Given (Duplicate Order): NS 0.9% (30 ml/kg) 30 ml/kg IV at bolus once; Sepsis tl3 Protocol 17:11 Drug: Potassium Chloride 40 mEq Route: PO; tl3 18:04 Follow up: Response: No adverse reaction tl3 17:12 Drug: Potassium Chloride 20 mEq Route: IV; Rate: calculated rate; Site: right forearm; tl3 18:03 Follow up: IV Status: Completed infusion; IV Intake: 100ml tl3 Point of Care Testing: Blood Glucose: 15:00 Blood Glucose: 120 mg/dL; tl3 Ranges: Critical Glucose Levels:Adult <50 mg/dl or >400 mg/dl <40 mg/dl or >180 mg/dl Disposition: 09/16/18 18:24 Hospitalization ordered by Veronica Dubose for Inpatient Admission. Preliminary diagnosis are Pneumonia, unspecified organism, Sepsis, unspecified organism. - Bed requested for Telemetry/MedSurg (Inpatient). - Status is Inpatient Admission. tl3 - Condition is Serious. - Problem is an ongoing problem. - Symptoms have improved. UTI on Admission? No Signatures: Dispatcher [employer] EDMS Aj Pastor MD MD kdr Joaquin, Henry, RN RN hj Fitzgerald, Diane, RN RN df Lowrey, Tammy, RN RN tl3 Corrections: (The following items were deleted from the chart) 18:35 18:24 Hospitalization Ordered by Veronica Dubose MD for Inpatient Admission. Preliminary df diagnosis is Pneumonia, unspecified organism; Sepsis, unspecified organism. Bed requested for Telemetry/MedSurg (Inpatient). Status is Inpatient Admission. Condition is Serious. Problem is an ongoing problem. Symptoms have improved. UTI on Admission? No. kdr 20:48 18:35 09/16/2018 18:24 Hospitalization Ordered by Veronica Dubose MD for Inpatient tl3 Admission. Preliminary diagnosis is Pneumonia, unspecified organism; Sepsis, unspecified organism. Bed requested for Telemetry/MedSurg (Inpatient). Status is Inpatient Admission. Condition is Serious. Problem is an ongoing problem. Symptoms have improved. UTI on Admission? No. df
[2018-09-16] MEDS ORDERED: ONDANSETRON 4 MG/2 ML VIAL IV PRN (19:39)
[2018-09-16] MEDS: NA CHLORIDE 0.9% 1,000 ML IV SCH (20:54)
[2018-09-16] MEDS ORDERED: CEFEPIME 2 GM VIAL IV SCH (21:00)
[2018-09-16] MEDS ORDERED: VANCOMYCIN 1.5 GM in NA CHLORIDE 0.9% 500 ML IVPB SCH (21:00)
[2018-09-16] MEDS ORDERED: CEFEPIME 2 GM VIAL ONE (22:35)
[2018-09-16] MEDS ORDERED: NA CHLORIDE 0.9% 100 ML ONE (22:50)
[2018-09-16 23:30] LABS: Urine Appearance CLEAR; Urine Bilirubin NEGATIVE (NEG); Urine Blood NEGATIVE (NEG); Urine Color YELLOW; Urine Glucose NEGATIVE (NEG); Urine Protein NEGATIVE (NEG); Urine Specific Gravity 1.015 (1.005-1.030); Urine Urobilinogen 0.2 mg/dL (0.2-1.0)
[2018-09-16 23:34] LABS: Urine Microscopic Reflex NO UMIC
[2018-09-17] MEDS: ACETAMINOPHEN 325 MG TABLET PO PRN ×6 (00:53→22:33)
[2018-09-17] MEDS ORDERED: ALPRAZOLAM 1 MG TABLET PO ONE (01:12)
[2018-09-17 02:16] VITALS: BMI 22.0
[2018-09-17] MEDS: KCL 20 MEQ/100 mL IVPB 20 MEQ/100 ML BAG IV SCH ×2 (02:54→05:06)
[2018-09-17] MEDS: NA CHLORIDE 0.9% 1,000 ML IV SCH ×5 (03:05→19:39)
[2018-09-17] MEDS ORDERED: VANCOMYCIN 500 MG/VIAL ONE (03:55)
[2018-09-17] MEDS ORDERED: NA CHLORIDE 0.9% 250 ML ONE (04:01)
--- NOTE | 2018-09-17 04:18 | HP ---
Date of Admission: 09/16/2018 Primary Care Physician: Dr. Cr. Chief Complaint: Shortness of breath, cough, fever, chills. History Of Present Illness: The patient is a 58-year-old male with past medical history of depression and anxiety, who was in his usual state of health until a week prior to admission when the patient had sudden onset of shortness of breath, upper respiratory tract infection symptoms with cough, with scant sputum production, and was evaluated in the ER twice. Was found have negative flu x2. Chest x-ray in the initial visit showed increased markings and possible infiltrate. However, white blood cell count was normal. His lactate was elevated during the initial visit; however, with fluid hydration and supportive care, it was normalized. The patient was discharged home, had a return visit to the ER with similar symptoms. Again, was not found to have any acute issues and treated symptomatically. On his third visit today, the patient 's symptoms are constant, moderate, and progressively worsening. His repeat chest x-ray did show a right base pneumonia. He had a temperature of 103. Potassium was low at 2.8. Procalcitonin was elevated at 0.12, as was lactate at 2.6. The patient appeared to be septic and was referred for admission. The patient did receive 30 mL/kg fluid bolus and broad-spectrum IV antibiotics. When seen in the ER, he was awake, alert, oriented x3, in some mild distress. Past Medical History: Depression and anxiety. Surgical History: The patient had hernia repair x2. Allergies: NO KNOWN DRUG ALLERGIES. Medications: List reviewed. Social History: The patient denies cigarette smoking; however, does drink alcohol daily 6 packs per day, however, has not had anything to drink for approximately 8 days. Denies any illicit drug use. The patient is . Family History: Mother had pancreatic cancer. Sister had breast cancer. Other sister had diabetes. Review of Systems: An 11-point system reviewed, negative except as per HPI. Physical Examination: Vital Signs: Stable. Temperature 103. General: Awake, alert, oriented x3. Acute distress, ill-appearing, older than stated age male. HEENT: Normocephalic, atraumatic. PERRLA. EOMI. Dry mucous membranes. Oropharynx is clear. Poor dentition. Conjunctivae anicteric. Neck: Supple. No JVD. Trachea midline. CV: S1, S2. Regular rate and rhythm. No murmurs. Peripheral pulses present. Respiratory: Diminished breath sounds at the base, right worse than left. No wheezing, crackles. No use of accessory muscles. Gastrointestinal: Abdomen is soft, nontender, nondistended. Positive bowel sounds. No guarding or rigidity. Extremities: No clubbing, cyanosis, or edema. No calf tenderness. Neuro: Cranial nerves 2 through 12 intact grossly. No focal neurological deficit. Speech is normal. Strength is 5/5 in bilateral upper and lower extremities. Sensation intact to light touch. Skin: No rashes. Normal skin turgor. Psych: Mood is okay. Affect is full. Insight and judgment are good. Laboratory Data: Sodium 139, potassium 2.8, chloride 101, CO2 29, BUN 7, creatinine 0.6, glucose 121, lactate 2.6, calcium 8.1, AST 96, ALT 107, troponin 0.06, albumin 2.5, lipase 128, procalcitonin 0.12. WBC 4.4, H and H 12.7 and 35.6, platelets 130. INR 1.06. UA negative. Imaging Studies: Head CT scan shows no acute intracranial finding. Dense for age arterial tree calcifications. Chest x-ray shows right base interstitial pneumonia. Assessment: A 58-year-old male with: 1. Sepsis. 2. Right lower lobe pneumonia, bacterial, possibly aspiration pneumonia. 3. Hypokalemia. 4. Elevated troponin level, likely due to demand mismatch. Plan: Admit the patient to Med/Surg, place as inpatient. Sepsis bundle has been initiated. The patient received 30 mL/kg fluid bolus in the ER, was given IV antibiotics broad spectrum with vancomycin. We will add cefepime for pulmonary source. The patient has high fevers of 103.4, tachycardic, tachypneic. Lactate is elevated. Blood cultures have been obtained. We will obtain sputum cultures. We will replace potassium. We will monitor electrolytes. Check magnesium level. Troponin elevation is likely due to demand mismatch. The patient does have some elevated LFTs, which may be related to sepsis as well. Length of stay is greater than 2 midnights. AMANDA Voice ID: [id number] [facility]
[2018-09-17] MEDS ORDERED: VANCOMYCIN 1.25 GM in NA CHLORIDE 0.9% 500 ML IVPB SCH (05:00)
[2018-09-17] MEDS: PANTOPRAZOLE 40MG TABLET PO SCH (05:29)
[2018-09-17 06:21] LABS: Absolute Lymphocytes (CBC) 1.6 K/uL (0.7-4.9); Absolute Monocytes 0.4 K/uL (0.1-1.3); Absolute Neutrophil 2.1 K/uL (1.8-8.0); Basophils % 0.5 % (0-1.3); Eosinophils % 0.4 % (0-4.4); Hematocrit 28.8 % (39.6-49.0); Lymphocytes % 38.8 % (15.3-44.8); MPV 8.6 fL (7.6-11.3); Monocytes % 8.9 % (3.3-12.3); RBC Red Blood Cell Count 3.15 M/uL (4.33-5.43)
[2018-09-17 06:37] LABS: BUN Blood Urea Nitrogen 7 mg/dL (7-18); Bicarbonate 23 mmol/L (21-32); Glucose Level 105 mg/dL (74-106); Magnesium 1.9 mg/dL (1.8-2.4); Phosphorus 2.2 mg/dL (2.5-4.9); Potassium 3.2 mmol/L (3.5-5.1); Sodium Level 139 mmol/L (136-145)
[2018-09-17] MEDS: CEFEPIME/SWI 2gm 2 GM/20 ML SYR IV SCH ×2 (09:13→20:54)
--- NOTE | 2018-09-17 11:31 | P.PN ---
Subjective Date of Service: 09/17/18 Primary Care Provider: Dr. Cr Chief Complaint: Generalize weakness, shortness of breath, cough Subjective: No new changes Patient seen and examined at bedside. No family at bedside. Chart reviewed and case discussed with nursing staff. Report still not feeling well, still complained of generalized weakness and cough. No change from admission. Febrile to 102 last night. Review of Systems 10-point ROS is otherwise unremarkable Physical Examination - Vital Signs Temperature: 99.6 F Blood Pressure: 142/81 Pulse: 98 Respirations: 20 Pulse Ox (%): 90 - Physical Exam General: Alert, Oriented x3, Moderate distress (Ill-appearing) HEENT: Atraumatic, PERRLA, Mucous membr. moist/pink, EOMI Neck: Supple, JVD not distended Respiratory: Diminished (At the base, bilaterally. No wheezing or crackles noted, no use of accessory muscles or tachypnea and) Cardiovascular: Regular rate/rhythm, Normal S1 S2 Gastrointestinal: Normal bowel sounds, No tenderness Musculoskeletal: No clubbing, No swelling, No tenderness Integumentary: No rashes Neurological: Normal affect - Studies Laboratory Data (last 24 hrs) Sodium 143, potassium 3.2, chloride 107, CO2 23, BUN 7, creatinine 0.4, glucose 105 WBC 4.1, H&H 10.2 and 28.8, platelets 124 Lactic acid: Initial 2.6, improved to 2.1 on repeat Microbiology Data (last 24 hrs): Cultures still pending Medications List Reviewed: Yes Assessment And Plan - Current Problems (Diagnosis) (1) Sepsis Current Visit: Yes Status: Acute Qualifiers: Sepsis type: sepsis due to unspecified organism Qualified Code(s): A41.9 - Sepsis, unspecified organism (2) Right lower lobe pneumonia Current Visit: Yes Status: Acute Qualifiers: Pneumonia type: aspiration pneumonia (3) Hypokalemia Current Visit: Yes Status: Acute (4) Elevated troponin Current Visit: Yes Status: Acute (5) Elevated LFTs Current Visit: Yes Status: Acute (6) History of depression Current Visit: Yes Status: Chronic - Plan This is a 58-year-old male with: Sepsis (Acute) A41.9 Next sepsis criteria with 1 of 3.4 fever, tachycardia, tachypnea. Lactate was also elevated, improved on repeat after IV fluids. Continue IV vancomycin and cefepime Blood and sputum Cultures are pending, we will follow up and adjust antibiotics accordingly. Continue IV fluids at this time. Right lower lobe pneumonia (Acute) J18.1 Likely aspiration pneumonia Continue IV cefepime Pending cultures Hypokalemia (Acute) E87.6 Improving, will continue to monitor replace as needed Elevated troponin (Acute) R74.8 This is likely secondary to demand mismatch. Patient currently denying any chest pain Will continue to monitor clinically. Elevated LFTs Likely secondary to sepsis, demand mismatch Will monitor via a.m. labs tomorrow. History of depression Stable, denies any homicidal suicidal ideations. Continue home medications DVT prophylaxis: Lovenox GI prophylaxis: Not needed Diet: Regular Disposition: Continue to monitor on the floor with tele. Continue IV antibiotics and IV fluids. Follow up cultures. Pending symptomatic improvement. Physician Review: Patient Assessed, Agree with Above Assessment and Plan Time Spent Managing PTS Care (In Minutes): 45
[2018-09-17] MEDS: ESCITALOPRAM 20 MG TAB PO SCH (13:18)
[2018-09-17] MEDS: BENZONATATE 100 MG CAP PO PRN (13:18)
[2018-09-17] MEDS: VANCOMYCIN 1.25 GM in NA CHLORIDE 0.9% 250 ML IVPB SCH (18:24)
[2018-09-17] MEDS: MELATONIN 3 MG TABLET PO PRN (21:52)
[2018-09-18] MEDS ORDERED: POTASSIUM CL SA 10 MEQ TAB PO ONE ×3 (02:04→21:00)
[2018-09-18] MEDS: NA CHLORIDE 0.9% 1,000 ML IV SCH ×3 (03:29→19:39)
[2018-09-18] MEDS: ACETAMINOPHEN 325 MG TABLET PO PRN (03:29)
[2018-09-18 06:02] LABS: Absolute Lymphocytes (CBC) 1.7 K/uL (0.7-4.9); Absolute Monocytes 0.5 K/uL (0.1-1.3); Absolute Neutrophil 2.9 K/uL (1.8-8.0); Basophils % 0.5 % (0-1.3); Eosinophils % 0.7 % (0-4.4); Hematocrit 29.7 % (39.6-49.0); Lymphocytes % 32.2 % (15.3-44.8); MPV 8.9 fL (7.6-11.3); Monocytes % 9.8 % (3.3-12.3); RBC Red Blood Cell Count 3.23 M/uL (4.33-5.43)
[2018-09-18 06:15] LABS: ALT/SGPT 71 U/L (12-78); AST/SGOT 67 U/L (15-37); Albumin 2.2 g/dL (3.4-5.0); Alkaline Phosphatase 63 U/L (45-117); BUN Blood Urea Nitrogen 6 mg/dL (7-18); Bicarbonate 23 mmol/L (21-32); Bilirubin Direct 0.2 mg/dL (0-0.2); Bilirubin Total 0.5 mg/dL (0.2-1.0); Glucose Level 107 mg/dL (74-106); Magnesium 2.2 mg/dL (1.8-2.4); Phosphorus 2.6 mg/dL (2.5-4.9); Potassium 3.2 mmol/L (3.5-5.1); Sodium Level 141 mmol/L (136-145)
[2018-09-18] MEDS: PANTOPRAZOLE 40MG TABLET PO SCH (06:30)
[2018-09-18] MEDS: VANCOMYCIN 1.25 GM in NA CHLORIDE 0.9% 250 ML IVPB SCH (06:30)
--- NOTE | 2018-09-18 08:04 | EKG ---
Test Date: 2018-09-16 Test Time: 14:36:32 Field Service Consultant: BRADY MEASUREMENT RESULTS: Intervals: Rate: 96 MO: 170 QRSD: 86 QT: 368 QTc: 464 Vida: P: 60 MO: 170 QRS: 60 T: 60 INTERPRETIVE STATEMENTS: Normal sinus rhythm Possible Left atrial enlargement Borderline ECG Compared to ECG 05/11/2013 22:26:36 No significant changes Electronically Signed On 09-18-18 08:03:07 CERTIFIED [employer] by Kenton Jean
[2018-09-18] MEDS: ACETAMINOPHEN 500 MG TAB PO PRN ×3 (08:18→19:46)
[2018-09-18] MEDS: ESCITALOPRAM 20 MG TAB PO SCH (09:16)
[2018-09-18] MEDS: CEFEPIME/SWI 2gm 2 GM/20 ML SYR IV SCH ×2 (09:16→21:20)
--- NOTE | 2018-09-18 14:22 | P.PN ---
Subjective Date of Service: 09/18/18 Primary Care Provider: Dr. Cr Chief Complaint: Generalize weakness, shortness of breath, cough Subjective: No new changes, No C/O voiced, Improving Patient seen and examined at bedside. No family at bedside. Chart reviewed and case discussed with nursing staff. Report still not feeling well, still complained of generalized weakness and cough. Reports improvement from yesterday. Febrile to 101 early this morning. fever curve improving. Review of Systems 10-point ROS is otherwise unremarkable Physical Examination - Vital Signs Temperature: 98.3 F Blood Pressure: 106/60 Pulse: 86 Respirations: 20 Pulse Ox (%): 93 - Physical Exam General: Alert, Oriented x3, Mild distress, Moderate distress HEENT: Atraumatic, PERRLA, EOMI Neck: Supple, JVD not distended Respiratory: Clear to auscultation bilaterally, Normal air movement Cardiovascular: Regular rate/rhythm, Normal S1 S2 Gastrointestinal: Normal bowel sounds, No tenderness Musculoskeletal: No tenderness Integumentary: No rashes Neurological: Normal speech, Normal tone, Normal affect - Studies Medications List Reviewed: Yes Assessment And Plan - Current Problems (Diagnosis) (1) Sepsis Current Visit: Yes Status: Acute Qualifiers: Sepsis type: sepsis due to unspecified organism Qualified Code(s): A41.9 - Sepsis, unspecified organism (2) Right lower lobe pneumonia Current Visit: Yes Status: Acute Qualifiers: Pneumonia type: aspiration pneumonia (3) Hypokalemia Current Visit: Yes Status: Acute (4) Elevated troponin Current Visit: Yes Status: Acute (5) Elevated LFTs Current Visit: Yes Status: Acute (6) History of depression Current Visit: Yes Status: Chronic - Plan This is a 58-year-old male with: Sepsis (Acute) A41.9: Resolving. Met sepsis criteria with 1 of 3.4 fever, tachycardia, tachypnea. Lactate was also elevated, improved on repeat after IV fluids. Continue IV vancomycin and cefepime Blood and sputum Cultures are pending, NGTD 24 hrs. We will follow up and adjust antibiotics accordingly. Continue IV fluids at this time. Right lower lobe pneumonia (Acute) J18.1 Likely aspiration pneumonia Continue IV cefepime Pending cultures Hypokalemia (Acute) E87.6 Resolved. Will continue to monitor replace as needed Elevated troponin (Acute) R74.8 This is likely secondary to demand mismatch. Patient currently denying any chest pain Will continue to monitor clinically. Elevated LFTs: Trending down Likely secondary to sepsis, demand mismatch Will monitor via a.m. labs tomorrow. History of depression Stable, denies any homicidal suicidal ideations. Continue home medications DVT prophylaxis: Lovenox GI prophylaxis: Not needed Diet: Regular Disposition: Continue to monitor on the floor with tele. Continue IV antibiotics and IV fluids. Follow up cultures. Pending symptomatic improvement. Physician Review: Patient Assessed, Agree with Above Assessment and Plan
[2018-09-18] MEDS: VANCOMYCIN 1.5 GM in NA CHLORIDE 0.9% 500 ML IVPB SCH (17:46)
[2018-09-18] MEDS: BENZONATATE 100 MG CAP PO PRN (19:46)
[2018-09-18] MEDS: MELATONIN 3 MG TABLET PO PRN (21:20)
[2018-09-19] MEDS: NA CHLORIDE 0.9% 1,000 ML IV SCH ×3 (01:56→19:39)
[2018-09-19] MEDS: ACETAMINOPHEN 500 MG TAB PO PRN ×5 (01:59→21:17)
[2018-09-19] MEDS: BENZONATATE 100 MG CAP PO PRN ×3 (02:16→21:23)
[2018-09-19] MEDS: VANCOMYCIN 1.5 GM in NA CHLORIDE 0.9% 500 ML IVPB SCH ×2 (05:13→18:00)
[2018-09-19] MEDS: PANTOPRAZOLE 40MG TABLET PO SCH (05:25)
[2018-09-19 06:10] LABS: Absolute Lymphocytes (CBC) 1.9 K/uL (0.7-4.9); Absolute Monocytes 0.6 K/uL (0.1-1.3); Basophils % 0.6 % (0-1.3); Eosinophils % 0.6 % (0-4.4); Hematocrit 28.8 % (39.6-49.0); MPV 9.1 fL (7.6-11.3); Monocytes % 11.4 % (3.3-12.3); RBC Red Blood Cell Count 3.14 M/uL (4.33-5.43)
[2018-09-19 06:27] LABS: BUN Blood Urea Nitrogen 6 mg/dL (7-18); Bicarbonate 24 mmol/L (21-32); Glucose Level 99 mg/dL (74-106); Magnesium 2.2 mg/dL (1.8-2.4); Potassium 3.5 mmol/L (3.5-5.1); Sodium Level 139 mmol/L (136-145)
[2018-09-19] MEDS: ESCITALOPRAM 20 MG TAB PO SCH (08:34)
[2018-09-19] MEDS ORDERED: POTASSIUM CL SA 10 MEQ TAB PO ONE (09:00)
[2018-09-19] MEDS: CEFEPIME/SWI 2gm 2 GM/20 ML SYR IV SCH ×2 (09:04→21:18)
--- NOTE | 2018-09-19 17:13 | P.PN ---
Subjective Date of Service: 09/19/18 Primary Care Provider: Dr. Cr Chief Complaint: Generalize weakness, shortness of breath, cough Subjective: No new changes, No C/O voiced, Improving Patient seen and examined at bedside. No family at bedside. Chart reviewed and case discussed with nursing staff. Report still not feeling well, still complained of generalized weakness and cough. Reports improvement from yesterday. Febrile to 101 early this morning. fever curve improving. Review of Systems 10-point ROS is otherwise unremarkable Physical Examination - Vital Signs Temperature: 99.9 F Blood Pressure: 126/80 Pulse: 87 Respirations: 18 Pulse Ox (%): 95 - Physical Exam General: Alert, In no apparent distress, Oriented x3 HEENT: Atraumatic, PERRLA, EOMI Neck: Supple, JVD not distended Respiratory: Clear to auscultation bilaterally, Normal air movement Cardiovascular: Regular rate/rhythm, Normal S1 S2 Gastrointestinal: Normal bowel sounds, No tenderness Musculoskeletal: No tenderness Integumentary: No rashes Neurological: Normal speech, Normal tone, Normal affect Lymphatics: No axilla or inguinal lymphadenopathy - Studies Medications List Reviewed: Yes Assessment And Plan - Current Problems (Diagnosis) (1) Sepsis Current Visit: Yes Status: Acute Qualifiers: Sepsis type: sepsis due to unspecified organism Qualified Code(s): A41.9 - Sepsis, unspecified organism (2) Right lower lobe pneumonia Current Visit: Yes Status: Acute Qualifiers: Pneumonia type: aspiration pneumonia (3) Hypokalemia Current Visit: Yes Status: Acute (4) Elevated troponin Current Visit: Yes Status: Acute (5) Elevated LFTs Current Visit: Yes Status: Acute (6) History of depression Current Visit: Yes Status: Chronic - Plan This is a 58-year-old male with: Sepsis (Acute) A41.9: Resolving. Met sepsis criteria with 1 of 3.4 fever, tachycardia, tachypnea. Lactate was also elevated, improved on repeat after IV fluids. Continue IV vancomycin and cefepime Blood and sputum Cultures are pending, NGTD 24 hrs. We will follow up and adjust antibiotics accordingly. Continue IV fluids at this time. Right lower lobe pneumonia (Acute) J18.1 Likely aspiration pneumonia Continue IV cefepime And cultures with normal respiratory marcelino Repeat chest tomorrow Hypokalemia (Acute) E87.6 Resolved. Will continue to monitor replace as needed Elevated troponin (Acute) R74.8 This is likely secondary to demand mismatch. Patient currently denying any chest pain Will continue to monitor clinically. Elevated LFTs: Trending down Likely secondary to sepsis, demand mismatch Will monitor via a.m. labs tomorrow. History of depression Stable, denies any homicidal suicidal ideations. Continue home medications DVT prophylaxis: Lovenox GI prophylaxis: Not needed Diet: Regular Disposition: Continue to monitor on the floor with tele. Continue IV antibiotics and IV fluids. Follow up cultures. Pending symptomatic improvement. Physician Review: Patient Assessed, Agree with Above Assessment and Plan
[2018-09-19] MEDS: VANCOMYCIN 1.75 GM in NA CHLORIDE 0.9% 500 ML IVPB SCH (21:27)
[2018-09-19] MEDS: MELATONIN 3 MG TABLET PO PRN (22:21)
[2018-09-20] MEDS: NA CHLORIDE 0.9% 1,000 ML IV SCH ×3 (02:35→21:22)
[2018-09-20] MEDS: ACETAMINOPHEN 500 MG TAB PO PRN ×4 (05:28→20:23)
[2018-09-20] MEDS: BENZONATATE 100 MG CAP PO PRN ×2 (05:31→16:25)
[2018-09-20] MEDS: PANTOPRAZOLE 40MG TABLET PO SCH (05:31)
[2018-09-20 06:28] LABS: Absolute Lymphocytes (CBC) 1.5 K/uL (0.7-4.9); Absolute Monocytes 0.5 K/uL (0.1-1.3); Basophils % 0.7 % (0-1.3); Eosinophils % 0.4 % (0-4.4); Hematocrit 28.5 % (39.6-49.0); Lymphocytes % 29.7 % (15.3-44.8); MPV 9.3 fL (7.6-11.3); Monocytes % 9.2 % (3.3-12.3); RBC Red Blood Cell Count 3.11 M/uL (4.33-5.43)
[2018-09-20 06:48] LABS: ALT/SGPT 51 U/L (12-78); AST/SGOT 55 U/L (15-37); Albumin 2.1 g/dL (3.4-5.0); Alkaline Phosphatase 57 U/L (45-117); BUN Blood Urea Nitrogen 6 mg/dL (7-18); Bicarbonate 23 mmol/L (21-32); Bilirubin Total 0.4 mg/dL (0.2-1.0); Glucose Level 103 mg/dL (74-106); Protein, Total 6.2 g/dL (6.4-8.2); Sodium Level 138 mmol/L (136-145)
[2018-09-20] MEDS ORDERED: POTASSIUM CL SA 10 MEQ TAB PO ONE ×2 (09:00→18:00)
[2018-09-20] MEDS: ESCITALOPRAM 20 MG TAB PO SCH (09:11)
[2018-09-20] MEDS: CEFEPIME/SWI 2gm 2 GM/20 ML SYR IV SCH ×2 (09:11→20:24)
[2018-09-20] MEDS: VANCOMYCIN 1.75 GM in NA CHLORIDE 0.9% 500 ML IVPB SCH (09:13)
--- NOTE | 2018-09-20 09:45 | RAD REPORT ---
EXAM DESCRIPTION: RADBrient Pa And Lat (2 Views)09/20/2018 8:00 am CLINICAL HISTORY: Cough COMPARISON: September 16, 2018 FINDINGS: Moderate diffuse bilateral interstitial lung opacities have worsened. Heart is normal siz e. Small pleural effusions IMPRESSION: Moderate diffuse bilateral interstitial lung opacities may represent an atypical pneumo lucien or pulmonary edema
[2018-09-20] MEDS: AZITHROMYCIN IV 500 MG in NA CHLORIDE 0.9% 250 ML IVPB SCH (12:12)
--- NOTE | 2018-09-20 12:16 | P.PN ---
Subjective Date of Service: 09/20/18 Primary Care Provider: Dr. Cr Chief Complaint: Generalize weakness, shortness of breath, cough Subjective: No new changes, No C/O voiced, Tolerating diet, Improving Patient seen and examined at bedside. No family at bedside. Chart reviewed and case discussed with nursing staff. Report still not feeling well, still complained of generalized weakness and cough. Though clinically, patient looks better. More alert this am, talking more in complete sentences. Febrile to 101 early this morning. fever curve improving. Review of Systems 10-point ROS is otherwise unremarkable Physical Examination - Vital Signs Temperature: 99.1 F Blood Pressure: 133/73 Pulse: 93 Respirations: 18 Pulse Ox (%): 92 - Physical Exam General: Alert, In no apparent distress, Oriented x3 HEENT: Atraumatic, PERRLA, EOMI Neck: Supple, JVD not distended Respiratory: Clear to auscultation bilaterally, Normal air movement Cardiovascular: Regular rate/rhythm, Normal S1 S2 Gastrointestinal: Normal bowel sounds, No tenderness Musculoskeletal: No tenderness Integumentary: No rashes Neurological: Normal speech, Normal tone, Normal affect Lymphatics: No axilla or inguinal lymphadenopathy - Studies Medications List Reviewed: Yes Assessment And Plan - Current Problems (Diagnosis) (1) Sepsis Current Visit: Yes Status: Acute Qualifiers: Sepsis type: sepsis due to unspecified organism Qualified Code(s): A41.9 - Sepsis, unspecified organism (2) Right lower lobe pneumonia Current Visit: Yes Status: Acute Qualifiers: Pneumonia type: aspiration pneumonia (3) Hypokalemia Current Visit: Yes Status: Acute (4) Elevated troponin Current Visit: Yes Status: Acute (5) Elevated LFTs Current Visit: Yes Status: Acute (6) History of depression Current Visit: Yes Status: Chronic - Plan This is a 58-year-old male with: Sepsis (Acute) A41.9: Resolving. Met sepsis criteria with 1 of 3.4 fever, tachycardia, tachypnea. Lactate was also elevated, improved on repeat after IV fluids. IV antibiotics adjusted. Vancomycin discontinued, azithromycin started. Continue cefepime. Blood and sputum Cultures are pending, NGTD 24 hrs. Continue IV fluids at this time. Right lower lobe pneumonia (Acute) J18.1 Continue IV cefepime. Added Azithromycin. Sputum cultures with normal respiratory marcelino Repeat CXR with bilateral interstitial PNA, atypical. Hypokalemia (Acute) E87.6 Replete per protocol. Will continue to monitor and replace as needed Elevated troponin (Acute) R74.8 This is likely secondary to demand mismatch. Patient currently denying any chest pain Will continue to monitor clinically. Elevated LFTs: Trending down Likely secondary to sepsis, demand mismatch Will monitor via a.m. labs tomorrow. History of depression Stable, denies any homicidal suicidal ideations. Continue home medications DVT prophylaxis: Lovenox GI prophylaxis: Not needed Diet: Regular Disposition: Continue to monitor on the floor with tele. Continue IV antibiotics and IV fluids. Follow up cultures. Pending symptomatic improvement. Physician Review: Patient Assessed, Agree with Above Assessment and Plan Time Spent Managing PTS Care (In Minutes): 35
[2018-09-20] MEDS: ZOLPIDEM TARTRATE 5 MG TABLET PO PRN (21:21)
[2018-09-21] MEDS: ACETAMINOPHEN 500 MG TAB PO PRN ×5 (03:36→22:30)
[2018-09-21] MEDS: NA CHLORIDE 0.9% 1,000 ML IV SCH ×4 (03:39→22:34)
[2018-09-21] MEDS: BENZONATATE 100 MG CAP PO PRN ×2 (03:39→13:18)
[2018-09-21 05:20] LABS: Absolute Lymphocytes (CBC) 1.1 K/uL (0.7-4.9); Absolute Monocytes 0.4 K/uL (0.1-1.3); Absolute Neutrophil 2.5 K/uL (1.8-8.0); Basophils % 0.7 % (0-1.3); Eosinophils % 0.9 % (0-4.4); Hematocrit 27.8 % (39.6-49.0); Lymphocytes % 27.4 % (15.3-44.8); MPV 9.2 fL (7.6-11.3); Monocytes % 9.1 % (3.3-12.3); RBC Red Blood Cell Count 3.05 M/uL (4.33-5.43)
[2018-09-21 05:38] LABS: ALT/SGPT 43 U/L (12-78); AST/SGOT 46 U/L (15-37); Alkaline Phosphatase 53 U/L (45-117); BUN Blood Urea Nitrogen 6 mg/dL (7-18); Bicarbonate 24 mmol/L (21-32); Bilirubin Total 0.4 mg/dL (0.2-1.0); Glucose Level 105 mg/dL (74-106); Protein, Total 6.3 g/dL (6.4-8.2); Sodium Level 139 mmol/L (136-145)
[2018-09-21] MEDS ORDERED: POTASSIUM CL SA 10 MEQ TAB PO ONE ×2 (05:53→14:00)
[2018-09-21] MEDS: PANTOPRAZOLE 40MG TABLET PO SCH (06:28)
[2018-09-21] MEDS: ESCITALOPRAM 20 MG TAB PO SCH (08:53)
[2018-09-21] MEDS: CEFEPIME/SWI 2gm 2 GM/20 ML SYR IV SCH ×2 (08:53→20:59)
[2018-09-21] MEDS: AZITHROMYCIN IV 500 MG in NA CHLORIDE 0.9% 250 ML IVPB SCH (08:53)
--- NOTE | 2018-09-21 11:15 | P.PN ---
Subjective Date of Service: 09/21/18 Primary Care Provider: Dr. Cr Chief Complaint: Generalize weakness, shortness of breath, cough Subjective: No new changes, No C/O voiced, Improving Patient seen and examined at bedside. No family at bedside. Chart reviewed and case discussed with nursing staff. Report still not feeling well, still complained of generalized weakness and cough. Though clinically, patient looks better. More alert this am, talking more in complete sentences. Febrile to 101 early this morning. fever curve improving. Review of Systems 10-point ROS is otherwise unremarkable Physical Examination - Vital Signs Temperature: 100.6 F Blood Pressure: 129/79 Pulse: 96 Respirations: 17 Pulse Ox (%): 94 - Physical Exam General: Alert, In no apparent distress, Oriented x3 HEENT: Atraumatic, PERRLA, EOMI Neck: Supple, JVD not distended Respiratory: Dull, Expiratory wheezes Cardiovascular: Regular rate/rhythm, Normal S1 S2 Gastrointestinal: Normal bowel sounds, No tenderness Musculoskeletal: No tenderness Integumentary: No rashes Neurological: Normal speech, Normal tone, Normal affect Lymphatics: No axilla or inguinal lymphadenopathy - Studies Medications List Reviewed: Yes Assessment And Plan - Current Problems (Diagnosis) (1) Sepsis Current Visit: Yes Status: Acute Qualifiers: Sepsis type: sepsis due to unspecified organism Qualified Code(s): A41.9 - Sepsis, unspecified organism (2) Right lower lobe pneumonia Current Visit: Yes Status: Acute Qualifiers: Pneumonia type: aspiration pneumonia (3) Hypokalemia Current Visit: Yes Status: Acute (4) Elevated troponin Current Visit: Yes Status: Acute (5) Elevated LFTs Current Visit: Yes Status: Acute (6) History of depression Current Visit: Yes Status: Chronic - Plan This is a 58-year-old male with: Sepsis (Acute) A41.9: Resolving. Met sepsis criteria with 1 of 3.4 fever, tachycardia, tachypnea. Lactate was also elevated, improved on repeat after IV fluids. IV antibiotics adjusted. Vancomycin discontinued, azithromycin started. Continue cefepime. Blood and sputum Cultures are pending, NGTD 24 hrs. Continue IV fluids at this time. Right lower lobe pneumonia (Acute) J18.1 Continue IV cefepime. Added Azithromycin. Sputum cultures with normal respiratory marcelino Repeat CXR with bilateral interstitial PNA, atypical. Hypokalemia (Acute) E87.6 Replete per protocol. Will continue to monitor and replace as needed Elevated troponin (Acute) R74.8 This is likely secondary to demand mismatch. Patient currently denying any chest pain Will continue to monitor clinically. Elevated LFTs: Trending down Likely secondary to sepsis, demand mismatch Will monitor via a.m. labs tomorrow. History of depression Stable, denies any homicidal suicidal ideations. Continue home medications DVT prophylaxis: Lovenox GI prophylaxis: Not needed Diet: Regular Disposition: Continue to monitor on the floor with tele. Continue IV antibiotics and IV fluids. Follow up cultures. Pending symptomatic improvement. Physician Review: Patient Assessed, Agree with Above Assessment and Plan
[2018-09-21] MEDS: ZOLPIDEM TARTRATE 5 MG TABLET PO PRN (22:30)
[2018-09-22] MEDS: PANTOPRAZOLE 40MG TABLET PO SCH (05:47)
[2018-09-22] MEDS: NA CHLORIDE 0.9% 1,000 ML IV SCH ×2 (05:49→11:39)
[2018-09-22] MEDS: BENZONATATE 100 MG CAP PO PRN (05:49)
[2018-09-22] MEDS: ACETAMINOPHEN 500 MG TAB PO PRN ×3 (05:56→21:04)
[2018-09-22 06:25] LABS: BUN Blood Urea Nitrogen 5 mg/dL (7-18); Bicarbonate 25 mmol/L (21-32); Glucose Level 101 mg/dL (74-106); Potassium 3.3 mmol/L (3.5-5.1); Sodium Level 139 mmol/L (136-145)
[2018-09-22] MEDS ORDERED: POTASSIUM CL SA 10 MEQ TAB PO ONE ×2 (06:28→17:00)
[2018-09-22] MEDS: AZITHROMYCIN IV 500 MG in NA CHLORIDE 0.9% 250 ML IVPB SCH (08:56)
[2018-09-22] MEDS: CEFEPIME/SWI 2gm 2 GM/20 ML SYR IV SCH ×2 (08:56→21:04)
[2018-09-22] MEDS: ESCITALOPRAM 20 MG TAB PO SCH (08:58)
--- NOTE | 2018-09-22 16:58 | P.PN ---
Subjective Date of Service: 09/22/18 Primary Care Provider: Dr. Cr Chief Complaint: Generalize weakness, shortness of breath, cough Subjective: No C/O voiced, Improving Patient seen and examined at bedside. at bedside. Chart reviewed and case discussed with nursing staff. Reports improvement. Today, able to walk around the hallway 5-6 times without oxygen with no shortness of breath or desaturation afterwards. Febrile to 101 early this morning though fever curve is improving. Discussed extensively with patient and at bedside. Review of Systems 10-point ROS is otherwise unremarkable Physical Examination - Vital Signs Temperature: 100.8 F Blood Pressure: 137/78 Pulse: 93 Respirations: 18 Pulse Ox (%): 92 - Physical Exam General: Alert, In no apparent distress, Oriented x3 HEENT: Atraumatic, PERRLA, EOMI Neck: Supple, JVD not distended Respiratory: Clear to auscultation bilaterally, Normal air movement Cardiovascular: Regular rate/rhythm, Normal S1 S2 Gastrointestinal: Normal bowel sounds, No tenderness Musculoskeletal: No tenderness Integumentary: No rashes Neurological: Normal speech, Normal tone, Normal affect Lymphatics: No axilla or inguinal lymphadenopathy - Studies Microbiology Data (last 24 hrs): 09/16/18 15:25 Blood - Blood Aerobic Blood Culture - Final No growth in 5 days. 09/16/18 15:25 Blood - Blood Anaerobic Blood Culture - Final No growth in 5 days. 09/16/18 15:25 Blood - Blood Aerobic Blood Culture - Final No growth in 5 days. 09/16/18 15:25 Blood - Blood Anaerobic Blood Culture - Final No growth in 5 days. Medications List Reviewed: Yes Assessment And Plan - Current Problems (Diagnosis) (1) Sepsis Current Visit: Yes Status: Acute Qualifiers: Sepsis type: sepsis due to unspecified organism Qualified Code(s): A41.9 - Sepsis, unspecified organism (2) Right lower lobe pneumonia Current Visit: Yes Status: Acute Qualifiers: Pneumonia type: aspiration pneumonia (3) Hypokalemia Current Visit: Yes Status: Acute (4) Elevated troponin Current Visit: Yes Status: Acute (5) Elevated LFTs Current Visit: Yes Status: Acute (6) History of depression Current Visit: Yes Status: Chronic - Plan This is a 58-year-old male with: Sepsis (Acute) A41.9: Resolving. Met sepsis criteria with WBC of 3.4, fever, tachycardia, tachypnea. Lactate was also elevated, improved on repeat after IV fluids. IV antibiotics adjusted. Vancomycin discontinued, azithromycin started. Continue cefepime. Blood and sputum Cultures are negative. Discontinue IV fluids at this time as patient tolerating PO Right lower lobe pneumonia (Acute) J18.1 Continue IV cefepime. Added Azithromycin. Sputum cultures with normal respiratory marcelino Repeat CXR with bilateral interstitial PNA, atypical. Hypokalemia (Acute) E87.6 Replete per protocol. Will continue to monitor and replace as needed Elevated troponin (Acute) R74.8 This is likely secondary to demand mismatch. Patient currently denying any chest pain Will continue to monitor clinically. Elevated LFTs: Resolved Likely secondary to sepsis, demand mismatch Will monitor via a.m. labs tomorrow. History of depression Stable, denies any homicidal or suicidal ideations. Continue home medications DVT prophylaxis: Lovenox GI prophylaxis: Not needed Diet: Regular Disposition: Continue to monitor on the floor with tele. Continue IV antibiotics. Patient improving, possible discharge home in the next 24-48 hours depending on clinical improvement. Physician Review: Patient Assessed, Agree with Above Assessment and Plan Time Spent Managing PTS Care (In Minutes): 45
[2018-09-22] MEDS: ZOLPIDEM TARTRATE 5 MG TABLET PO PRN (21:05)
[2018-09-23 05:58] LABS: Absolute Lymphocytes (CBC) 1.5 K/uL (0.7-4.9); Absolute Monocytes 0.4 K/uL (0.1-1.3); Absolute Neutrophil 1.8 K/uL (1.8-8.0); Basophils % 0.9 % (0-1.3); Eosinophils % 1.3 % (0-4.4); Lymphocytes % 39.7 % (15.3-44.8); MPV 8.6 fL (7.6-11.3); Monocytes % 10.4 % (3.3-12.3); RBC Red Blood Cell Count 3.21 M/uL (4.33-5.43)
[2018-09-23] MEDS: ACETAMINOPHEN 500 MG TAB PO PRN ×3 (06:04→20:54)
[2018-09-23] MEDS: PANTOPRAZOLE 40MG TABLET PO SCH (06:04)
[2018-09-23 06:11] LABS: BUN Blood Urea Nitrogen 5 mg/dL (7-18); Bicarbonate 28 mmol/L (21-32); Glucose Level 101 mg/dL (74-106); Potassium 3.8 mmol/L (3.5-5.1); Sodium Level 140 mmol/L (136-145)
[2018-09-23] MEDS ORDERED: POTASSIUM CL SA 10 MEQ TAB PO ONE (09:00)
[2018-09-23] MEDS ORDERED: NS 0.9% VIAL 20 ML ONE (10:08)
--- NOTE | 2018-09-23 10:26 | RAD REPORT ---
EXAM DESCRIPTION: RAD - Chest Pa And Lat (2 Views) - 09/23/2018 9:36 am CLINICAL HISTORY: Pneumonia Chest pain. COMPARISON: Chest Pa And Lat (2 Views) dated 09/20/2018; Chest Single View dated 09/16/2018; Chest Pa And Lat (2 Views) dated 09/11/2018; CHEST SINGLE VIEW dated 05/11/2013 FINDINGS: Mild improvement in the interstitial lung opacities is seen since comparative study. Minim al right and small left pleural effusion again noted with left-sided pleural fluid slightly increased . The heart is normal in size. No displaced fractures. IMPRESSION: Mild improvement in lung aeration since comparative study.
[2018-09-23] MEDS: ESCITALOPRAM 20 MG TAB PO SCH (10:33)
[2018-09-23] MEDS: CEFEPIME/SWI 2gm 2 GM/20 ML SYR IV SCH ×2 (10:35→20:54)
[2018-09-23] MEDS: AZITHROMYCIN IV 500 MG in NA CHLORIDE 0.9% 250 ML IVPB SCH (10:35)
--- NOTE | 2018-09-23 16:41 | P.PN ---
Subjective Date of Service: 09/23/18 Primary Care Provider: Dr. Cr Chief Complaint: Generalize weakness, shortness of breath, cough Patient seen and examined at bedside. at bedside. Chart reviewed and case discussed with nursing staff. Oxygen weaned off. Satting well on room air Febrile to 101 early this morning though fever curve is improving. Review of Systems 10-point ROS is otherwise unremarkable Physical Examination - Vital Signs Temperature: 98.3 F Blood Pressure: 129/78 Pulse: 93 Respirations: 18 Pulse Ox (%): 95 - Physical Exam General: Alert, In no apparent distress, Oriented x3 HEENT: Atraumatic, PERRLA, EOMI Neck: Supple, JVD not distended Respiratory: Clear to auscultation bilaterally, Normal air movement Cardiovascular: Regular rate/rhythm, Normal S1 S2 Gastrointestinal: Normal bowel sounds, No tenderness Musculoskeletal: No tenderness Integumentary: No rashes Neurological: Normal speech, Normal tone, Normal affect Lymphatics: No axilla or inguinal lymphadenopathy - Studies Medications List Reviewed: Yes Assessment And Plan - Current Problems (Diagnosis) (1) Sepsis Current Visit: Yes Status: Acute Qualifiers: Sepsis type: sepsis due to unspecified organism Qualified Code(s): A41.9 - Sepsis, unspecified organism (2) Right lower lobe pneumonia Current Visit: Yes Status: Acute Qualifiers: Pneumonia type: aspiration pneumonia (3) Hypokalemia Current Visit: Yes Status: Acute (4) Elevated troponin Current Visit: Yes Status: Acute (5) Elevated LFTs Current Visit: Yes Status: Acute (6) History of depression Current Visit: Yes Status: Chronic - Plan This is a 58-year-old male with: Sepsis (Acute) A41.9: Resolving. Met sepsis criteria with WBC of 3.4, fever, tachycardia, tachypnea. Lactate was also elevated, improved on repeat after IV fluids. IV antibiotics adjusted. Vancomycin discontinued, azithromycin started. Continue cefepime. Blood and sputum Cultures are negative. Discontinue IV fluids at this time as patient tolerating PO Right lower lobe pneumonia (Acute) J18.1 Continue IV cefepime. Added Azithromycin. Sputum cultures with normal respiratory marcelino Repeat CXR with bilateral interstitial PNA, atypical. Hypokalemia (Acute) E87.6 Resolved. Will continue to monitor and replace as needed Elevated troponin (Acute) R74.8 Elevated LFTs: Resolved History of depression Stable, denies any homicidal or suicidal ideations. Continue home medications DVT prophylaxis: Lovenox GI prophylaxis: Not needed Diet: Regular Disposition: The plan was to discharge patient today. Discharge was held due to patient's spiking of fever prior to discharge. We will continue to monitor. Likely discharge in the next 24-48 hr if afebrile. Physician Review: Patient Assessed, Agree with Above Assessment and Plan
[2018-09-23] MEDS: ZOLPIDEM TARTRATE 5 MG TABLET PO PRN (23:22)
[2018-09-24] MEDS: ACETAMINOPHEN 500 MG TAB PO PRN ×3 (04:08→15:56)
[2018-09-24] MEDS: PANTOPRAZOLE 40MG TABLET PO SCH (05:41)
[2018-09-24 06:16] LABS: BUN Blood Urea Nitrogen 5 mg/dL (7-18); Bicarbonate 27 mmol/L (21-32); Glucose Level 103 mg/dL (74-106); Potassium 3.1 mmol/L (3.5-5.1); Sodium Level 137 mmol/L (136-145)
[2018-09-24] MEDS: KCL 20 MEQ/100 mL IVPB 20 MEQ/100 ML BAG IV SCH ×2 (08:00→09:16)
[2018-09-24] MEDS: CEFEPIME/SWI 2gm 2 GM/20 ML SYR IV SCH ×2 (09:19→20:19)
[2018-09-24] MEDS: ESCITALOPRAM 20 MG TAB PO SCH (09:19)
[2018-09-24] MEDS: AZITHROMYCIN IV 500 MG in NA CHLORIDE 0.9% 250 ML IVPB SCH (09:20)
[2018-09-24] MEDS ORDERED: POTASSIUM CL SA 10 MEQ TAB PO ONE (09:31)
--- NOTE | 2018-09-24 15:11 | RAD REPORT ---
EXAM DESCRIPTION: CT - CT CHEST,ABD,PELVIS W/O - 09/24/2018 2:19 pm CLINICAL HISTORY: Chest and abdominal pain/shortness of breath COMPARISON: None. TECHNIQUE: Computed axial tomography the chest and abdomen obtained. IV contrast was not requested w hich limits evaluation of vessels, mediastinum, genet and solid organs. Oral contrast not given which limits evaluation bowel. All CT scans are performed using dose optimization technique as appropriate and may include automated exposure control or mA/KV adjustment according to patient size. FINDINGS: Small bilateral pleural effusions are present. Mild bilateral lower lobe opacities No mediastinal or hilar lymphadenopathy A small pericardial effusion is seen The liver, spleen, pancreas, adrenal and kidneys demonstrate no significant abnormality. There is no evidence of diverticulitis. Small amount of ascites is present. Bilateral inguinal hernias contain fat. The bladder is mildly distended. Gallbladder is contracted IMPRESSION: Small bilateral pleural effusions Mild bilateral lower lobe opacities probably representing a combination of pneumonia and atelectasis The small amount ascites Mild bladder distention Contracted gallbladder
--- NOTE | 2018-09-24 18:55 | PN ---
Date of Progress Note: 09/24/2018 Subjective: The patient is seen and examined. Chart reviewed and case discussed with RN and also di scussed with Dr. Hamilton. The patient did have another temperature spike of 101.5 early this morning. Medications: List reviewed. Physical Examination: Vital Signs: T-max 101.5, heart rate 71, blood pressure 117/73, respirations 18, O2 92% on 2 L via n john paul cannula. General: Awake, alert, and oriented x3, appears older than stated age male. CVS: S1, S2. Regular rate and rhythm. Peripheral pulses present. No murmurs. Respiratory: Moving air well bilaterally except at the bases. No wheezing or stridor. Gastrointestinal: Abdomen is soft. No distention. No tenderness. Bowel sounds positive. Extremities: No clubbing, cyanosis, or edema. No calf tenderness. NEURO: Cranial nerves 2-12 intact grossly. No focal neurological deficit. Speech is normal. Laboratory Data: Sodium 137, potassium 3.1, chloride 101, CO2 27, BUN 5, creatinine 0.46, glucose 10 3, calcium 7.6. CRP 8.9, procalcitonin 0.09. WBC pending. Blood cultures and sputum cultures are n egative to date. C. diff assay also negative. Assessment And Plan: A 58-year-old male with: 1.Sepsis. The patient is still having high temperature spikes, unclear source of recurrent fevers. We will redraw blood cultures. ID consultation. Obtain CT chest, abdomen, pelvis, HIV screen. The patient does have low WBC count, maybe immunocompromised. 2.Right lower lobe pneumonia, improving. Aspiration pneumonia. We will obtain CT chest. 3.Hypokalemia. Replace and monitor. 4.Elevated troponin, likely due to sepsis. The patient denies any chest pain. 5.Elevated LFTs, normalized, likely due to sepsis. 6.History of major depressive disorder, in remission. 7.Gastrointestinal and deep venous thrombosis prophylaxis with Lovenox. We will follow up on CT [address], abdomen and pelvis, and HIV screen. May be viral etiology. Discharge once afebrile greater than [address] Hamilton's input. SA/MODL Voice ID: [id number] Report ID: [id number]
[2018-09-24] MEDS: ZOLPIDEM TARTRATE 5 MG TABLET PO PRN (20:52)
[2018-09-25] MEDS: PANTOPRAZOLE 40MG TABLET PO SCH (06:34)
--- NOTE | 2018-09-25 08:17 | CON ---
History Of Present Illness: The patient is a 58-year-old male I was consulted for low-grade fevers. The patient came in with fever, cough and chills and shortness of breath. The patient denies any he adache, nausea, vomiting, chest pain, abdominal pain, constipation, or diarrhea. 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 The patient has been on antibiotic for last few days since he has been in hospital . His symptoms started for 2 weeks and he has been in and out of the emergency room for 3 times. Past Medical History: Depression, otherwise unremarkable. Surgical History: Hernia repair. Social History: Tobacco, alcohol positive. Family History: Noncontributory. Medications: Cefepime, Zithromax. See [facility] for other medication. Allergies: NO KNOWN DRUG ALLERGIES. Review of Systems: A 10-point review was performed. Physical Examination: General: This is a 58-year-old male, lying in bed, not in any acute cardiopulmonary distress. Vital Signs: Temperature 99.8, pulse 71, respiration 18, blood pressure 117/73. HEENT: Unremarkable. Neck: Supple. Lungs: Basal crackles. Heart S1, S2. Regular. Abdomen: Soft, nontender. Bowel sounds positive. Extremities: No edema. Laboratory Data: Shows WBC 3.8, hemoglobin 10.1, platelets are 184. Chemistry shows sodium 137, pot assium 3.1, chloride 101, bicarb 27, BUN 5, creatinine 0.46, glucose 103 with procalcitonin of 0.09. Assessment And Plan: A 58-year-old male with low-grade fevers and normal white blood cell count and procalcitonin and pleural effusion on x-ray. Consider getting a CT scan and HIV panel. Continue ant ibiotic and supportive care. We will follow the patient closely. Thank you Dr. Dubose for consult. KRISTOPHER/DEREK Voice ID: [id number] Report ID: [id number]
[2018-09-25] MEDS: ESCITALOPRAM 20 MG TAB PO SCH (09:30)
[2018-09-25] MEDS: AZITHROMYCIN IV 500 MG in NA CHLORIDE 0.9% 250 ML IVPB SCH (09:30)
[2018-09-25] MEDS: CEFEPIME/SWI 2gm 2 GM/20 ML SYR IV SCH (09:30)
[2018-09-25] MEDS: ACETAMINOPHEN 500 MG TAB PO PRN (11:43)
[2018-09-25 17:16] VITALS: BP 105/67; TEMP 99.7
[2018-09-25 17:29] VITALS: O2SAT 93
--- NOTE | 2018-09-26 03:20 | DS ---
Date of Discharge: 09/25/2018 Nurse Sane: Octavio Hamilton M.D., with Infectious Disease. Admitting Diagnoses: 1.Sepsis. 2.Right lower lobe pneumonia, likely aspiration pneumonia. 3.Hypokalemia. 4.Elevated troponin level. Discharge Diagnoses: 1.Sepsis, improved. 2.Right lower lobe pneumonia secondary to aspiration, improving. 3.Hypokalemia, replaced. 4.Elevated troponin level, likely due to sepsis. No band mismatch. 5.Elevated liver function tests, normalized. 6.History of major depressive disorder, in remission. Hospital Course: The patient is a 58-year-old male with past medical history of depression and anxie ty, comes in with sudden onset of shortness of breath. The patient has some respiratory infection-ty pe symptoms and was found to have right-sided pneumonia, likely secondary to aspiration. Flu screen was negative. His chest x-ray did show some increased markings and possible infiltrate. Due to his clinical picture, he was admitted for pneumonia. He was found to be septic and was started on sepsis bundle along with IV antibiotics and IV fluids. The patient had a protracted course in the hospital . He did have some elevated troponin levels secondary to demand mismatch and sepsis and some electro lyte abnormalities which were corrected. His procalcitonin level trended down. White count remained low. The patient is leukopenic, but not neutropenic. The patient clinically improved, however, con tinued to spike high-grade fevers of unclear etiology. His blood cultures were negative. Sputum cul ture was also negative. Clostridium difficile assay was checked and also negative. His repeat blood cultures were done, which were also negative to date. UA was also clear. The patient was seen by Leigh Ann Hamilton with Infectious Disease, who was consulted for these recurrent fevers. HIV panel and hepat itis panel were obtained for further elucidation of his fevers. CT chest, abdomen, and pelvis showed small bilateral pleural effusions, mild bilateral lower lobe opacities representing combination of p neumonia and atelectasis, small amount of ascites, mild bladder distention, and contracted gallbladde r. There was no evidence of diverticulitis. Liver, spleen, pancreas, adrenal glands, and kidneys di d not demonstrate any significant abnormality. The patient was then afebrile for greater than 24 griffin rs. Last fever was at 101.6 at 4 p.m. on the 8th. The patient was then cleared for discharge and wa s to be sent home on azithromycin. Followup: He will follow up with primary care physician in 1 week. Follow up with Infectious [facility], Dr. Hamilton, in 2 weeks. Return to ER for worsening condition. Diet: Low-sodium, fluid-restricted diet. Total time spent discharging the patient was 45 minutes. Physical Examination: General: Awake, alert, oriented x3. No acute distress. Appears older than stated age. Frail male. CV: S1, S2. No murmurs. Respiratory: Moving air well bilaterally. No wheezing. Gastrointestinal: Abdomen is soft, nontender, nondistended. Positive bowel sounds. Extremities: No clubbing, cyanosis, or edema. Neurologic: Nonfocal. SA/MODL Voice ID: [id number] Report ID: [id number]
[2018-09-26 16:48] LABS: HIV 1/2 Antibody Diff Not indicated.; HIV AG/AB 4TH GEN Non-reactive (Non-reactive)
[2018-09-27 21:17] LABS: HBsAG Nonreactive (Nonreactive); Hepatitis A IgM Antibody Nonreactive
[2018-09-28 14:39] LABS: Hep C Virus RNA (PCR)log <1.18 log IU/mL
== END 2018-09-25 17:07 | disposition home or self-care (01) | DRG 871 ==
LOC: ER 13:16 → ERHOLD 17:43 → 2ND 19:51
PROVIDERS: ADMIT Family Medicine; ATTEND Family Medicine
DX: A41.9 Sepsis, unspecified organism (principal); J69.0 Pneumonitis due to inhalation of food and vomit; E87.6 Hypokalemia; R79.89 Other specified abnormal findings of blood chemistry; R94.5 Abnormal results of liver function studies; F32.89 Other specified depressive episodes; F41.9 Anxiety disorder, unspecified; F32.9 Major depressive disorder, single episode, unspecified
CPT/HCPCS: 36415; 70450; 71045; 71046; 71250; 74176; 80048; 80053; 80074; 80076; 80202; 81003; 81015; 82550; 82553; 82962; 83605; 83690; 83735; 84100; 84132; 84145; 84484; 85025; 85610; 85730; 86140; 87040; 87070; 87205; 87389; 87493; 87522; 93005; 96365; 96366; 96367; 96368; 96375; 99285; J0456; J0692; J0696; J7030

== ENCOUNTER 2019-11-10 11:06 | Emergency (ER) | payer SELFPAY ==
--- NOTE | 2019-11-10 11:42 | RAD REPORT ---
EXAM DESCRIPTION: CT - Head Brain Wo Cont - 11/10/2019 11:29 am CLINICAL HISTORY: facial trauma Fall, trauma, head injury COMPARISON: Head Brain Wo Cont dated 09/16/2018; HEAD BRAIN W O CONTRAST dated 05/11/2013; Facial Bon es W/ Mpr dated 11/10/2019 TECHNIQUE: All CT scans are performed using dose optimization technique as appropriate and may inclu de automated exposure control or mA/KV adjustment according to patient size. FINDINGS: No intracranial hemorrhage, hydrocephalus or extra-axial fluid collection.No areas of brai n edema or evidence of midline shift. The paranasal sinuses and mastoids are essentially clear. Facial bone findings are separately detaile d in dedicated facial bone CT study. The calvarium is intact. IMPRESSION: No acute intracranial abnormality.
--- NOTE | 2019-11-10 11:46 | RAD REPORT ---
EXAM DESCRIPTION: CT - CTFB CLINICAL HISTORY: FACIAL PAIN Fall, trauma, facial injury swelling. COMPARISON: No comparisons TECHNIQUE: Axial 2 mm thick images of the face were obtained with sagittal and coronal reconstructio n images. All CT scans are performed using dose optimization technique as appropriate and may include automated exposure control or mA/KV adjustment according to patient size. FINDINGS: Mildly comminuted nasal fractures seen with soft tissue swelling. Buckling of the nasal se ptum is also seen to the left which may indicate fracture involvement. Moderate fluid is seen in the nasal passage and left maxillary antrum presumably blood product.The mandible is intact. The globes and orbital contents are grossly unremarkable.Mastoid air cells are clear. IMPRESSION: Mildly comminuted nasal bone fracture with probable involvement of the nasal septum ante riorly.
[2019-11-10] MEDS ORDERED: HYDROCODONE/APAP 10/325 TAB ONE (11:47)
--- NOTE | 2019-11-10 13:04 | EDPHYS ---
Physician Documentation [facility] Name: Galen Steele Age: 59 yrs Sex: Male : 1960 Arrival Date: 11/10/2019 Time: 11:08 Bed 8 Private MD: ED Physician Aj Pastor HPI: 11/10 11:19 This 59 yrs old Male presents to ER via Unassigned with complaints of Fall kdr Injury, Laceration To Nose. 11:19 Details of fall: The patient fell from a height, from a ladder, approximately 4 feet. kdr Onset: The symptoms/episode began/occurred suddenly, just prior to arrival. Associated injuries: The patient sustained injury to the head, contusion, laceration, of the right side of nose. Severity of symptoms: At their worst the symptoms were mild, moderate, in the emergency department the symptoms are unchanged. The patient has not experienced similar symptoms in the past. The patient has not recently seen a physician. Historical: - Allergies: 11:21 No Known Allergies; iw - Home Meds: 11:21 Xanax Oral as needed for Anxiety [Active]; iw - PMHx: 11:21 Anxiety; iw - PSHx: 11:21 Hernia repair; iw - Immunization history:: Adult Immunizations up to date. - Coronavirus screen:: The patient has NOT traveled to [place] in the past 14 days. Proceed with normal triage process as indicated. The patient has NOT had contact with known/suspected case of Coronavirus? Proceed with normal triage procedures. - Social history:: Smoking status: . - Ebola Screening: : No symptoms or risks identified at this time. ROS: 11:19 Constitutional: Negative for fever, chills, and weight loss, Eyes: Negative for injury, kdr pain, redness, and discharge, Neck: Negative for injury, pain, and swelling, Cardiovascular: Negative for chest pain, palpitations, and edema, Respiratory: Negative for shortness of breath, cough, wheezing, and pleuritic chest pain, Abdomen/GI: Negative for abdominal pain, nausea, vomiting, diarrhea, and constipation, Back: Negative for injury and pain, : Negative for injury, bleeding, discharge, and swelling, MS/Extremity: Negative for injury and deformity, Neuro: Negative for headache, weakness, numbness, tingling, and seizure activity. Psych: Negative for depression, anxiety, suicide ideation, homicidal ideation, and hallucinations, Allergy/Immunology: Negative for hives, rash, and allergies, Endocrine: Negative for neck swelling, polydipsia, polyuria, polyphagia, and marked weight changes, Hematologic/Lymphatic: Negative for swollen nodes, abnormal bleeding, and unusual bruising. 11:19 ENT: Positive for nose bleed. 11:19 Skin: Positive for abrasion(s), laceration(s). Exam: 11:19 Constitutional: This is a well developed, well nourished patient who is awake, alert, kdr and in no acute distress. Head/Face: Normocephalic, atraumatic. Eyes: Pupils equal round and reactive to light, extra-ocular motions intact. Lids and lashes normal. Conjunctiva and sclera are non-icteric and not injected. Cornea within normal limits. Periorbital areas with no swelling, redness, or edema. Neck: Trachea midline, no thyromegaly or masses palpated, and no cervical lymphadenopathy. Supple, full range of motion without nuchal rigidity, or vertebral point tenderness. No Meningismus. Chest/axilla: Normal chest wall appearance and motion. Nontender with no deformity. No lesions are appreciated. Cardiovascular: Regular rate and rhythm with a normal S1 and S2. No gallops, murmurs, or rubs. Normal PMI, no JVD. No pulse deficits. Respiratory: Lungs have equal breath sounds bilaterally, clear to auscultation and percussion. No rales, rhonchi or wheezes noted. No increased work of breathing, no retractions or nasal flaring. Abdomen/GI: Soft, non-tender, with normal bowel sounds. No distension or tympany. No guarding or rebound. No evidence of tenderness throughout. Back: No spinal tenderness. No costovertebral tenderness. Full range of motion. Skin: Warm, dry with normal turgor. Normal color with no rashes, no lesions, and no evidence of cellulitis. MS/ Extremity: Pulses equal, no cyanosis. Neurovascular intact. Full, normal range of motion. Neuro: Awake and alert, GCS 15, oriented to person, place, time, and situation. Cranial nerves II-XII grossly intact. Motor strength 5/5 in all extremities. Sensory grossly intact. Cerebellar exam normal. Normal gait. Psych: Awake, alert, with orientation to person, place and time. Behavior, mood, and affect are within normal limits. Vital Signs: 11:15 BP 166 / 120; Pulse 87; Resp 16; Temp 98.4; Pulse Ox 97% on R/A; Pain 5/10; em1 11:39 BP 161 / 91; Pulse 80; Resp 16; Temp 98; Pulse Ox 98% on R/A; sv 12:06 BP 156 / 105; Pulse 82; Resp 16 S; Pulse Ox 97% on R/A; ca1 12:37 BP 134 / 81; Pulse 82; Resp 16; Pulse Ox 96% ; sv 13:15 BP 131 / 80; Pulse 80; Resp 16; Temp 98; Pulse Ox 99% ; sv [place] Coma Score: 11:21 Eye Response: spontaneous(4). Verbal Response: oriented(5). Motor Response: obeys iw commands(6). Total: 15. 11:39 Eye Response: spontaneous(4). Verbal Response: oriented(5). Motor Response: obeys sv commands(6). Total: 15. 12:37 Eye Response: spontaneous(4). Verbal Response: oriented(5). Motor Response: obeys sv commands(6). Total: 15. 13:15 Eye Response: spontaneous(4). Verbal Response: oriented(5). Motor Response: obeys sv commands(6). Total: 15. Trauma Score (Adult): 11:21 Eye Response: spontaneous(1); Verbal Response: oriented(1); Motor Response: obeys iw commands(2); Systolic BP: > 89 mm Hg(4); Respiratory Rate: 10 to 29 per min(4); Zo Score: 15; Trauma Score: 12 11:39 Eye Response: spontaneous(1); Verbal Response: oriented(1); Motor Response: obeys sv commands(2); Systolic BP: > 89 mm Hg(4); Respiratory Rate: 10 to 29 per min(4); Zo Score: 15; Trauma Score: 12 13:15 Eye Response: spontaneous(1); Verbal Response: oriented(1); Motor Response: obeys sv commands(2); Systolic BP: > 89 mm Hg(4); Respiratory Rate: 10 to 29 per min(4); Zo Score: 15; Trauma Score: 12 MDM: 11:16 Patient medically screened. ma2 16:03 Data reviewed: vital signs. kdr 11/10 11:23 Order name: CT Facial Bones W/O Con kdr 11/10 11:23 Order name: CT Head Brain wo Cont kdr Administered Medications: 11:50 Drug: [place] 10 mg-325 mg 1 tabs {Note: RASS2.} Route: PO; sv 12:30 Follow up: Response: No adverse reaction; RASS: Alert and Calm (0) sv Disposition: 11/10/19 13:03 Discharged to Home. Impression: Other slipping, tripping and stumbling and falls, Fracture of nasal bones, Superficial injury of head. - Condition is Stable. - Discharge Instructions: Nasal Fracture, [id number], Head Injury, Adult, [id number], What You Need to Know About Prescription Opioid Pain Medicine. - Prescriptions for Tramadol 50 mg Oral Tablet - take 1 tablet by ORAL route every 8 hours as needed; 12 tablet. - Medication Reconciliation Form, Thank You Letter form. - Follow up: Private Physician; When: 2 - 3 days; Reason: If symptoms return, Further diagnostic work-up, Recheck today's complaints, Continuance of care, Re-evaluation by your physician. - Problem is new. - Symptoms have improved. Signatures: Dispatcher [employer] Sofia Walker RN RN sv Rittger, Kevin, MD MD [facility] Genia Peres RN RN Yasmin Grimaldo MD MD [facility] Corrections: (The following items were deleted from the chart) 13:03 13:03 11/10/2019 13:03 Discharged to Home. Impression: Other slipping, tripping and kdr stumbling and falls; Fracture of nasal bones. Condition is Stable. Forms are Medication Reconciliation Form, Thank You Letter, Antibiotic Education, Prescription Opioid Use. Follow up: Private Physician; When: 2 - 3 days; Reason: If symptoms return, Further diagnostic work-up, Recheck today's complaints, Continuance of care, Re-evaluation by your physician. Problem is new. Symptoms have improved. [facility] 13:43 13:03 11/10/2019 13:03 Discharged to Home. Impression: Other slipping, tripping and sv stumbling and falls; Fracture of nasal bones; Superficial injury of head. Condition is Stable. Forms are Medication Reconciliation Form, Thank You Letter, Antibiotic Education, Prescription Opioid Use. Follow up: Private Physician; When: 2 - 3 days; Reason: If symptoms return, Further diagnostic work-up, Recheck today's complaints, Continuance of care, Re-evaluation by your physician. Problem is new. Symptoms have improved. kdr
--- NOTE | 2019-11-10 13:04 | ER ---
Nurse's Notes [facility] Name: Galen Steele Age: 59 yrs Sex: Male : 1960 Arrival Date: 11/10/2019 Time: 11:08 Bed 8 Private MD: Diagnosis: Other slipping, tripping and stumbling and falls;Fracture of nasal bones;Superficial injury of head Presentation: 11/10 11:17 Presenting complaint: Patient states: fell from one walk board down to the next, approx iw 4 feet, hit face , denies LOC, abrasion to bridge of nose, swelling to nose, not on blood thinners. Care prior to arrival: None. Mechanism of Injury: Fall approximately 4 feet. Trauma event details: Injury occurred in the [facility]. 11:17 Acuity: JASON 4 iw 11:17 Method Of Arrival: Wheelchair iw 11:21 Transition of care: patient was not received from another setting of care. Onset of iw symptoms was November 10, 2019. Risk Assessment: Do you want to hurt yourself or someone else? Patient reports no desire to harm self or others. Initial Sepsis Screen: Does the patient meet any 2 criteria? No. Patient's initial sepsis screen is negative. Does the patient have a suspected source of infection? No. Patient's initial sepsis screen is negative. Trauma Activation: Not Applicable Physician: ED Physician; Name: ; Notified At: ; Arrived At: Physician: General Surgeon; Name: ; Notified At: ; Arrived At: Physician: Radiology; Name: ; Notified At: ; Arrived At: Physician: Respiratory; Name: ; Notified At: ; Arrived At: Physician: Lab; Name: ; Notified At: ; Arrived At: Historical: - Allergies: 11:21 No Known Allergies; iw - Home Meds: 11:21 Xanax Oral as needed for Anxiety [Active]; iw - PMHx: 11:21 Anxiety; iw - PSHx: 11:21 Hernia repair; iw - Immunization history:: Adult Immunizations up to date. - Coronavirus screen:: The patient has NOT traveled to [place] in the past 14 days. Proceed with normal triage process as indicated. The patient has NOT had contact with known/suspected case of Coronavirus? Proceed with normal triage procedures. - Social history:: Smoking status: . - Ebola Screening: : No symptoms or risks identified at this time. Screenin:23 Abuse screen: Denies threats or abuse. Denies injuries from another. Tuberculosis iw screening: No symptoms or risk factors identified. 11:39 Fall Risk No fall in past 12 months (0 pts). No secondary diagnosis (0 pts). No IV (0 sv pts). Ambulatory Aid- None/Bed Rest/Nurse Assist (0 pts). Gait- Normal/Bed Rest/Wheelchair (0 pts) Mental Status- Oriented to own ability (0 pts). Total Mckeon Fall Scale indicates No Risk (0-24 pts). 12:01 Nutritional screening: No deficits noted. sv Primary Survey: 11:23 NO uncontrolled hemorrhage observed. A: The patient is alert. Airway: patent. iw Breathing/Chest: Respiratory pattern: regular, Respiratory effort: spontaneous, unlabored, Breath sounds: clear. Circulation: Pulses: palpable right radial artery and left radial artery. Disability Alert. Exposure/Environment: All clothing and personal items were removed. Forensic evidence collection is not deemed to be indicated at this time. Items placed in patient belonging bag. 11:39 Reassessment Airway Airway Patent Oxygen No O2 Oral cavity Clear Trachea Midline sv Breathing/Chest Respiratory pattern Regular Respiratory effort Spontaneous Unlabored Breath sounds Clear Chest inspection Symmetrical Circulation Heart tones Present Pulses Palpable Color [place] Temperature Warm Dry Disability Alert. Secondary Survey: 11:39 HEENT: Nose: bleeding noted to bilateral nares. laceration noted to the nose. sv Gastrointestinal: Abdomen is soft, flat, Bowel sounds present in all quadrants. Palpation No deficit noted. : No deficits noted. No signs and/or symptoms were reported regarding the genitourinary system. Musculoskeletal: No signs and/or symptoms reported regarding the musculoskeletal system. Injury Description: Abrasion sustained to abdomen, right arm, left arm, right leg, left leg and nose is scabbed, was sustained 30-60 minutes ago. Assessment: 11:22 General: Appears in no apparent distress. Behavior is calm. Pain: Complains of pain in iw face and nose. Neuro: Level of Consciousness is awake, alert, obeys commands, Oriented to person, place, time, situation, Moves all extremities. EENT: Nares are clear swelling to bridge of nose. Cardiovascular: Patient's skin is warm and dry. Respiratory: Respiratory effort is even, unlabored, Respiratory pattern is regular, symmetrical. Derm: Skin. Musculoskeletal: Range of motion: intact in all extremities. Vital Signs: 11:15 BP 166 / 120; Pulse 87; Resp 16; Temp 98.4; Pulse Ox 97% on R/A; Pain 5/10; em1 11:39 BP 161 / 91; Pulse 80; Resp 16; Temp 98; Pulse Ox 98% on R/A; sv 12:06 BP 156 / 105; Pulse 82; Resp 16 S; Pulse Ox 97% on R/A; ca1 12:37 BP 134 / 81; Pulse 82; Resp 16; Pulse Ox 96% ; sv 13:15 BP 131 / 80; Pulse 80; Resp 16; Temp 98; Pulse Ox 99% ; sv Zo Coma Score: 11:21 Eye Response: spontaneous(4). Verbal Response: oriented(5). Motor Response: obeys iw commands(6). Total: 15. 11:39 Eye Response: spontaneous(4). Verbal Response: oriented(5). Motor Response: obeys sv commands(6). Total: 15. 12:37 Eye Response: spontaneous(4). Verbal Response: oriented(5). Motor Response: obeys sv commands(6). Total: 15. 13:15 Eye Response: spontaneous(4). Verbal Response: oriented(5). Motor Response: obeys sv commands(6). Total: 15. Trauma Score (Adult): 11:21 Eye Response: spontaneous(1); Verbal Response: oriented(1); Motor Response: obeys iw commands(2); Systolic BP: > 89 mm Hg(4); Respiratory Rate: 10 to 29 per min(4); [place] Score: 15; Trauma Score: 12 11:39 Eye Response: spontaneous(1); Verbal Response: oriented(1); Motor Response: obeys sv commands(2); Systolic BP: > 89 mm Hg(4); Respiratory Rate: 10 to 29 per min(4); Zo Score: 15; Trauma Score: 12 13:15 Eye Response: spontaneous(1); Verbal Response: oriented(1); Motor Response: obeys sv commands(2); Systolic BP: > 89 mm Hg(4); Respiratory Rate: 10 to 29 per min(4); [place] Score: 15; Trauma Score: 12 ED Course: 11:08 Patient arrived in ED. rg4 11:16 Yasmin Grimaldo MD is Attending Physician. ma2 11:18 Aj Pastor MD is Attending Physician. kdr 11:18 Patient moved to radiology via stretcher. ah 11:20 Triage completed. iw 11:23 Sofia Vogt, RN is Primary Nurse. sv 11:24 Patient maintains SpO2 saturation greater than 95% on room air. Thermoregulation: warm iw blanket given to patient. 11:24 Patient has correct armband on for positive identification. iw 11:24 Arm band placed on. iw 11:31 CT Facial Bones W/O Con In Process Unspecified. EDMS 11:32 CT Head Brain wo Cont In Process Unspecified. EDMS 13:43 No provider procedures requiring assistance completed. IV discontinued, intact, sv bleeding controlled, No redness/swelling at site. Pressure dressing applied. Administered Medications: 11:50 Drug: [place] 10 mg-325 mg 1 tabs {Note: RASS2.} Route: PO; sv 12:30 Follow up: Response: No adverse reaction; RASS: Alert and Calm (0) sv Intake: 11:39 PO: 0ml; Total: 0ml. sv 13:15 PO: 200ml; Total: 200ml. sv Output: 11:39 Urine: 0ml; Total: 0ml. sv 13:15 Urine: 0ml; Total: 0ml. sv Outcome: 13:03 Discharge ordered by . kdr 13:43 Patient left the ED. sv 13:43 Discharged to home ambulatory, with family. sv 13:43 Condition: stable 13:43 Discharge instructions given to patient, family, Instructed on discharge instructions, follow up and referral plans. medication usage, Demonstrated understanding of instructions, follow-up care, medications, Prescriptions given X 1. 15:36 Patient's length of stay was not longer than 2 hours. sv Signatures: Dispatcher [employer] EDMS Sofia Vogt RN RN Aj Pastor MD MD kdr Williams, Irene, RN RN iw Martinez, Eric emKarla Blake rg4 Yasmin Grimaldo MD MD ma2 Acob, Cheryl, RN RN ca1 Michelle Jean RN RN Corrections: (The following items were deleted from the chart) 11:18 11:15 BP 166 / 120; Pulse 87bpm; Resp 16bpm; Pulse Ox 97% RA; Pain 5/10; em1 em1 15:36 13:15 BP 131 / 80; Pulse 80bpm; Resp 16bpm; Pulse Ox 99%; sv sv
[2019-11-10 14:21] VITALS: TEMP 98
[2019-11-10 14:25] VITALS: BP 131/80; O2SAT 99
== END 2019-11-10 13:43 | disposition home or self-care (01) ==
LOC: ER 11:06
DX: S02.2XXA Fracture of nasal bones, initial encounter for closed fracture (principal); W11.XXXA Fall on and from ladder, initial encounter; Y93.9 Activity, unspecified; Y92.9 Unspecified place or not applicable; F41.9 Anxiety disorder, unspecified
CPT/HCPCS: 70450; 70486; 76377; 99284

== ENCOUNTER 2021-06-26 08:05 | Emergency (ER) | payer SELFPAY ==
[2021-06-26] MEDS ORDERED: MORPHINE 4 MG/ML SYR ONE (08:50)
[2021-06-26] MEDS ORDERED: ONDANSETRON 4 MG/2 ML VIAL ONE (08:50)
[2021-06-26 08:52] LABS: Protime INR 0.92
[2021-06-26 08:57] LABS: BUN Blood Urea Nitrogen 14 mg/dL (7-18); Bicarbonate 24 mmol/L (21-32); Glucose Level 134 mg/dL (74-106); Potassium 3.9 mmol/L (3.5-5.1); Sodium Level 142 mmol/L (136-145)
--- NOTE | 2021-06-26 09:12 | RAD REPORT ---
EXAM DESCRIPTION: CT - Thorax W/ Con - 06/26/2021 8:58 am CLINICAL HISTORY: fall, left lateral/posterior chest injury COMPARISON: CT CHEST,ABD,PELVIS W/O dated 09/24/2018 TECHNIQUE: Dynamically enhanced 5 mm thick images of the chest were obtained during administration o f 100 mL non-ionic IV contrast. All CT scans are performed using dose optimization technique as appropriate and may include automated exposure control or mA/KV adjustment according to patient size. FINDINGS: No pulmonary contusion, mass, infiltrate or acute lung parenchymal process identifiable. N o pleural thickening or pleural effusion. No pneumothorax. No chest wall mass or abnormal axillary ly mphadenopathy. No abnormal mediastinal or hilar mass or lymphadenopathy seen. The posterior left tenth rib shows 2 acute fractures within the rib approximated within 2 cm of one a nother. There is no displacement of either fracture of any measurable significance. No pathologic joan nges. No other fracture changes are present. IMPRESSION: Posterior left tenth rib shows 2 adjacent acute fractures with no measurable displacemen t. No other rib fracture. No pulmonary contusion, pneumothorax or other associated trauma finding.
[2021-06-26 09:24] LABS: Absolute Lymphocytes (CBC) 1.5 K/uL (0.7-4.9); Basophils % 0.4 % (0-1.3); Hematocrit 42.6 % (39.6-49.0); Lymphocytes % 32.2 % (15.3-44.8); MPV 7.4 fL (7.6-11.3)
[2021-06-26] MEDS ORDERED: HYDROMORPHONE HCL 1 MG/ML INJ ONE (09:37)
--- NOTE | 2021-06-26 10:25 | EDPHYS ---
Physician Documentation [facility] Name: Galen Steele Age: 61 yrs Sex: Male : 1960 Arrival Date: 06/26/2021 Time: 08:06 Bed 13 Private MD: ED Physician John Carr HPI: 06/26 08:20 This 61 yrs old Male presents to ER via Ambulatory with complaints of Fall rn Injury, rib injury. 08:20 Details of fall: The patient fell from an upright position, while walking. Onset: The rn symptoms/episode began/occurred this morning. Associated injuries: The patient sustained injury to the chest, pain with breathing, pain with movement, tenderness. Severity of symptoms: At their worst the symptoms were moderate, in the emergency department the symptoms are unchanged. The patient has not experienced similar symptoms in the past. The patient has not recently seen a physician. . Historical: - Allergies: 08:13 No Known Allergies; ll1 - Home Meds: 08:27 Xanax Oral as needed for Anxiety [Active]; ll1 - PMHx: 08:13 Anxiety; stroke; ll1 - PSHx: 08:13 hernia repair x 2; ll1 - Immunization history:: Client reports receiving the Wilson \T\ Wilson single-dose vaccine. - Social history:: Smoking status: Patient reports the use of cigarette tobacco products, denies chronic smoking, but will smoke occasionally. - Immunization history: Last tetanus immunization: - up to date. - Family history:: not pertinent. - Hospitalizations: : No recent hospitalization is reported. ROS: 08:22 Constitutional: Negative for fever, chills, and weight loss, Eyes: Negative for injury, rn pain, redness, and discharge, Neck: Negative for injury, pain, and swelling, Cardiovascular: Positive for traumatic chest pain to the left posterior lateral rib cage Respiratory: Negative for shortness of breath, cough, wheezing Abdomen/GI: Negative for abdominal pain, nausea, vomiting, diarrhea, and constipation, Back: Negative for injury and pain, MS/Extremity: Negative for injury and deformity, Skin: Negative for injury, rash, and discoloration, Neuro: Negative for headache, weakness, numbness, tingling, and seizure. 08:22 All other systems are negative. 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 Eyes: Periorbital areas with no swelling, redness, or edema. Neck: No vertebral point tenderness. Chest/axilla: No ecchymosis or crepitus but tender left posterior lateral ribs Cardiovascular: Regular rate and rhythm. No pulse deficits. Respiratory: No increased work of breathing, no retractions or nasal flaring. Abdomen/GI: Soft, non-tender Back: No spinal tenderness. Skin: Warm, dry with normal turgor. Normal color with no rashes, no lesions, and no evidence of cellulitis. MS/ Extremity: Pulses equal, no cyanosis. Neurovascular intact. Full, normal range of motion. Equal circumference. Neuro: Awake and alert, GCS 15, oriented to person, place, time, and situation. Cranial nerves II-XII grossly intact. Motor strength 5/5 in all extremities. Sensory grossly intact. Cerebellar exam normal. Normal gait. Vital Signs: 08:14 BP 160 / 92; Pulse 83; Resp 17; Temp 98.1; Pulse Ox 95% on R/A; Weight 72.57 kg; Height ll1 5 ft. 10 in. (177.80 cm); Pain 10/10; 09:17 BP 123 / 87; Pulse 70; Resp 16; Pulse Ox 95% on R/A; ll1 10:40 BP 110 / 84; Pulse 73; Resp 17; Pulse Ox 97% on R/A; Pain 6/10; ll1 08:14 Body Mass Index 22.96 (72.57 kg, 177.80 cm) ll1 Zo Coma Score: 08:18 Eye Response: spontaneous(4). Verbal Response: oriented(5). Motor Response: obeys ll1 commands(6). Total: 15. Trauma Score (Adult): 08:18 Eye Response: spontaneous(1); Verbal Response: oriented(1); Motor Response: obeys ll1 commands(2); Systolic BP: > 89 mm Hg(4); Respiratory Rate: 10 to 29 per min(4); Zo Score: 15; Trauma Score: 12 MDM: 08:07 Patient medically screened. rn 10:23 Differential diagnosis: contusion, fracture. Data reviewed: vital signs, nurses notes, rn imcu test result(s), radiologic studies, CT scan, and as a result, I will discharge patient. Data interpreted: equipment monitor phototypesetting: rate is 70 beats/min, rhythm is normal sinus rhythm, regular, with no ectopy, Interpretation: normal rate, normal rhythm, Pulse oximetry: on room air is 96 %. Interpretation: normal. Counseling: I had a detailed discussion with the patient and/or guardian regarding: the historical points, exam findings, and any diagnostic results supporting the discharge/admit diagnosis, lab results, radiology results, the need for outpatient follow up, to return to the emergency department if symptoms worsen or persist or if there are any questions or concerns that arise at home. Response to treatment: the patient's symptoms have markedly improved after treatment, and as a result, I will discharge patient. Special discussion: I discussed with the patient/guardian in detail that at this point there is no indication for admission to the hospital. It is understood, however, that if the symptoms persist or worsen the patient needs to return immediately for re-evaluation. ED course: Patient with single left hand posterior lateral rib fracture. No pneumothorax. No pulmonary contusion. Feels much better after pain medication. Went through all precautions regarding treatment and management of rib fractures with patient and family member. Will DC home with pain medication and muscle relaxer. As well as incentive spirometer. 06/26 08:17 Order name: CBC with Diff; Complete Time: 10:16 rn 06/26 08:17 Order name: Basic Metabolic Panel; Complete Time: 09: rn 06/26 08:17 Order name: CT Chest W/ Con; Complete Time: : rn 06/26 08:17 Order name: Protime (+inr); Complete Time: : rn 06/26 08:17 Order name: Ptt, Activated; Complete Time: 09: rn 06/26 10:24 Order name: INCENTIVE SPIROMETRY rn 06/26 08:17 Order name: IV Start; Complete Time: 08:20 rn Administered Medications: 08:42 Drug: morphine 4 mg {Note: rass 0.} Route: IVP; Site: right forearm; ll1 09:16 Follow up: Response: No adverse reaction; Pain is decreased; RASS: Alert and Calm (0) ll1 08:42 Drug: Zofran (Ondansetron) 4 mg Route: IVP; Site: right forearm; ll1 09:16 Follow up: Response: No adverse reaction ll1 09:16 Drug: Dilaudid (HYDROmorphone) 1 mg Route: IVP; Site: right forearm; ll1 10:39 Follow up: Response: No adverse reaction; Pain is decreased; RASS: Alert and Calm (0) ll1 10:39 Drug: [place] (HYDROcodone-acetaminophen) 10 mg-325 mg 1 tabs {Note: rass 0.} Route: PO; ll1 10:39 Follow up: Response: No adverse reaction ll1 Disposition Summary: 06/26/21 10:24 Discharge Ordered Location: Home rn Problem: new rn Symptoms: have improved rn Condition: Stable rn Diagnosis - Fracture of one rib, left side rn Followup: rn - With: Private Physician - When: As needed - Reason: Recheck today's complaints, Re-evaluation by your physician Discharge Instructions: - Discharge Summary Sheet rn - Rib Fracture rn - How to Use an Incentive Spirometer rn Forms: - Medication Reconciliation Form rn - Thank You Letter rn - Antibiotic tech intern - Prescription Opioid Use rn Prescriptions: - Cyclobenzaprine 10 mg Oral Tablet - take 1 tablet by ORAL route every 8-12 hours As needed; 10 tablet; Refills: 0, rn Product Selection Permitted - Tylenol-Codeine #3 300 mg-30 mg Oral - take 1 tablet by ORAL route every 6-8 hours As needed; 15 tablet; Refills: 0, rn Product Selection Permitted Signatures: Dispatcher [employer] John Ng MD MD rn Lewis, Lynsay, RN RN 1 Corrections: (The following items were deleted from the chart) 08:14 08:13 Social history: Smoking status: Patient denies any tobacco usage or history of. 1 ll1
--- NOTE | 2021-06-26 10:25 | ER ---
Nurse's Notes [facility] Name: Galen Steele Age: 61 yrs Sex: Male : 1960 Arrival Date: 06/26/2021 Time: 08:06 Bed 13 Private MD: Diagnosis: Fracture of one rib, left side Presentation: 06/26 08:14 Chief complaint: Patient states: Tripped in the bathroom last night at 2200. Hit L ll1 trunk on bathtub. L sided rib cage pain since. No head injury or LOC. No blood thinners. Coronavirus screen: Vaccine status: Patient reports receiving the 1st dose of the Covid vaccine. Client denies travel out of the [place] in the last 14 days. At this time, the client does not indicate any symptoms associated with coronavirus-19. Ebola Screen: Patient denies travel to an Ebola-affected area in the 21 days before illness onset. Initial Sepsis Screen: Does the patient meet any 2 criteria? No. Patient's initial sepsis screen is negative. Does the patient have a suspected source of infection? Yes: Bone or joint infection. Risk Assessment: Do you want to hurt yourself or someone else? Patient reports no desire to harm self or others. Onset of symptoms was June 25, 2021. 08:14 Method Of Arrival: Ambulatory [facility] 08:14 Acuity: JASON 4 1 08:19 Care prior to arrival: None. Mechanism of Injury: Fall. 1 08:19 Trauma event details: Injury occurred in the [facility]. 1 Triage Assessment: 08:16 General: Appears uncomfortable, Behavior is calm, cooperative, appropriate for age. ll1 Pain: Complains of pain in L anterior ribs Pain currently is 10 out of 10 on a pain scale. Quality of pain is described as aching, Aggravated by increased activity. Neuro: No deficits noted. Cardiovascular: No deficits noted. Respiratory: No deficits noted. Musculoskeletal: Circulation, motion, and sensation intact. Capillary refill < 3 seconds, Range of motion: intact in all extremities, Tenderness present in L anterior ribs Reports. Injury Description: fall, trunk trauma. Trauma Activation: Not Applicable Physician: ED Physician; Name: ; Notified At: ; Arrived At: Physician: General Surgeon; Name: ; Notified At: ; Arrived At: Physician: Radiology; Name: ; Notified At: ; Arrived At: Physician: Respiratory; Name: ; Notified At: ; Arrived At: Physician: Lab; Name: ; Notified At: ; Arrived At: Historical: - Allergies: 08:13 No Known Allergies; ll1 - Home Meds: 08:27 Xanax Oral as needed for Anxiety [Active]; ll1 - PMHx: 08:13 Anxiety; stroke; ll1 - PSHx: 08:13 hernia repair x 2; ll1 - Immunization history:: Client reports receiving the Wilson \T\ Wilson single-dose vaccine. - Social history:: Smoking status: Patient reports the use of cigarette tobacco products, denies chronic smoking, but will smoke occasionally. - Immunization history: Last tetanus immunization: - up to date. - Family history:: not pertinent. - Hospitalizations: : No recent hospitalization is reported. Screenin:17 Abuse screen: Denies threats or abuse. Nutritional screening: No deficits noted. ll1 Tuberculosis screening: No symptoms or risk factors identified. 08:27 Fall Risk Fall in past 12 months (25 points). IV access (20 points). Gait- Impaired (20 ll1 pts.). Total Mckeon Fall Scale indicates High Risk Score (45 or more points). Fall prevention measures have been instituted. Side Rails Up X 2 Placed Close to Nursing Station Frequent Obs/Assessments Occuring Family Present and informed to notify staff if the need to leave the bedside As available patient and family educated on Fall Prevention Program and Strategies. Primary Survey: 08:18 NO uncontrolled hemorrhage observed. A: The patient is alert. Airway: patent. ll1 Breathing/Chest: Respiratory pattern: regular, Respiratory effort: spontaneous, unlabored, Breath sounds: clear, Chest inspection: symmetrical rise and fall of the chest. Circulation: Pulses: palpable right radial artery and left radial artery. Skin color: pink. Disability Alert. Exposure/Environment: There is no evidence of uncontrolled external bleeding. 10:41 Reassessment Breathing/Chest Respiratory pattern Regular Respiratory effort Spontaneous ll1 Unlabored Breath sounds Clear Chest inspection Symmetrical. Assessment: 09:15 Reassessment: No changes from previously documented assessment. Patient and/or family ll1 updated on plan of care and expected duration. Pain level reassessed. Patient is alert, oriented x 3, equal unlabored respirations, skin warm/dry/pink. Patient states feeling better. 10:15 Reassessment: No changes from previously documented assessment. Patient and/or family ll1 updated on plan of care and expected duration. Pain level reassessed. Patient is alert, oriented x 3, equal unlabored respirations, skin warm/dry/pink. Patient states feeling better. 10:40 Reassessment: No changes from previously documented assessment. Patient and/or family ll1 updated on plan of care and expected duration. Pain level reassessed. Patient is alert, oriented x 3, equal unlabored respirations, skin warm/dry/pink. Patient states feeling better. Patient states symptoms have improved. Vital Signs: 08:14 BP 160 / 92; Pulse 83; Resp 17; Temp 98.1; Pulse Ox 95% on R/A; Weight 72.57 kg; Height ll1 5 ft. 10 in. (177.80 cm); Pain 10/10; 09:17 BP 123 / 87; Pulse 70; Resp 16; Pulse Ox 95% on R/A; ll1 10:40 BP 110 / 84; Pulse 73; Resp 17; Pulse Ox 97% on R/A; Pain 6/10; ll1 08:14 Body Mass Index 22.96 (72.57 kg, 177.80 cm) ll1 Marble Coma Score: 08:18 Eye Response: spontaneous(4). Verbal Response: oriented(5). Motor Response: obeys ll1 commands(6). Total: 15. Trauma Score (Adult): 08:18 Eye Response: spontaneous(1); Verbal Response: oriented(1); Motor Response: obeys ll1 commands(2); Systolic BP: > 89 mm Hg(4); Respiratory Rate: 10 to 29 per min(4); Marble Score: 15; Trauma Score: 12 ED Course: 08:06 Patient arrived in ED. rg4 08:07 John Carr MD is Attending Physician. rn 08:12 Luz Hahn RN is Primary Nurse. ll1 08:12 Arm band placed on Patient placed in an exam room, on a stretcher. ll1 08:16 Triage completed. ll1 08:18 Patient has correct armband on for positive identification. Bed in low position. Call ll1 light in reach. Side rails up X 1. Pulse ox on. NIBP on. 08:19 Thermoregulation: warm blanket given to patient. ll1 08:19 Patient maintains SpO2 saturation greater than 95% on room air. ll1 08:20 Inserted saline lock: 20 gauge in right forearm, using aseptic technique. Blood ll1 collected. 08:58 CT Chest W/ Con In Process Unspecified. EDMS 10:26 INCENTIVE SPIROMETRY Sent. ll1 10:41 No provider procedures requiring assistance completed. ll1 10:41 IV discontinued, intact, bleeding controlled, No redness/swelling at site. Pressure ll1 dressing applied. Administered Medications: 08:42 Drug: morphine 4 mg {Note: rass 0.} Route: IVP; Site: right forearm; ll1 09:16 Follow up: Response: No adverse reaction; Pain is decreased; RASS: Alert and Calm (0) ll1 08:42 Drug: Zofran (Ondansetron) 4 mg Route: IVP; Site: right forearm; ll1 09:16 Follow up: Response: No adverse reaction ll1 09:16 Drug: Dilaudid (HYDROmorphone) 1 mg Route: IVP; Site: right forearm; ll1 10:39 Follow up: Response: No adverse reaction; Pain is decreased; RASS: Alert and Calm (0) ll1 10:39 Drug: [place] (HYDROcodone-acetaminophen) 10 mg-325 mg 1 tabs {Note: rass 0.} Route: PO; ll1 10:39 Follow up: Response: No adverse reaction ll1 Intake: 10:42 PO: 100ml; Total: 100ml. ll1 Output: 10:42 Urine: 0ml; Total: 0ml. ll1 Outcome: 10:24 Discharge ordered by . rn 10:41 Discharged to home ambulatory. ll1 10:41 Condition: stable 10:41 Discharge instructions given to patient, family, Instructed on discharge instructions, follow up and referral plans. no driving heavy equipment, medication usage, Demonstrated understanding of instructions, follow-up care, medications, Prescriptions given X 2. 10:42 Patient's length of stay was not longer than 2 hours. ll1 10:42 Patient left the ED. ll1 Signatures: Dispatcher [employer] EDMS John Carr MD MD rn Garcia, Rubi rg4 Luz Hahn RN RN ll1 Corrections: (The following items were deleted from the chart) 08:14 08:13 Social history: Smoking status: Patient denies any tobacco usage or history of. ll1 ll1 10:42 10:39 IV discontinued, intact, bleeding controlled, No redness/swelling at site. ll1 Pressure dressing applied, ll1
[2021-06-26 10:48] VITALS: TEMP 98.1
[2021-06-26 10:51] VITALS: BP 110/84; O2SAT 97
[2021-06-26] MEDS ORDERED: HYDROCODONE/APAP 10/325 TAB ONE (10:55)
== END 2021-06-26 10:42 | disposition home or self-care (01) ==
LOC: ER 08:05
DX: S22.32XA Fracture of one rib, left side, initial encounter for closed fracture (principal); W01.0XXA Fall on same level from slipping, tripping and stumbling without subsequent striking against object, initial encounter; Y92.89 Other specified places as the place of occurrence of the external cause; F17.210 Nicotine dependence, cigarettes, uncomplicated; Z86.73 Personal history of transient ischemic attack (TIA), and cerebral infarction without residual deficits; F41.9 Anxiety disorder, unspecified
CPT/HCPCS: 36415; 71260; 80048; 82565; 85025; 85610; 85730; 96374; 96375; 99284; J1170; J2405; Q9967

== ENCOUNTER 2023-02-13 07:45 | Emergency (ER) | payer SELFPAY ==
--- OUTSIDE RECORDS SUMMARY | 2023-02-13 07:48 | XMS REPORT | Continuity of Care Document ---
:1960 Author Organization [facility] t Address [address] [place] [address] Care Team Providers Name Role Phone SEYMOUR JOHNSON Attending Clinician Unavailable QUEENIE CARRILLO Attending Clinician Unavailable LENIN YANES Attending Clinician Unavailable QUEENIE CARRILLO Admitting Clinician Unavailable LENIN YANES Admitting Clinician Unavailable Problems This patient has no known problems. Allergies, Adverse Reactions, Alerts This patient has no known allergies or adverse reactions. Medications This patient has no known medications. Procedures This patient has no known procedures. Encounters Start End Encounter Admission Attending Care Care Encounter Source Date/Time Date/Time Type Type Clinicians Facility Department ID 2020-05-26 2020-05-26 Emergency E SEYMOUR JOHNSON [facility] [id number] [facility] 14:32:00 18:07:00 2020-05-21 2020-05-22 Inpatient E GERARDO [facility] [id number] [facility] 11:00:00 16:22:00 QUEENIE 2020-05-21 2020-05-21 Outpatient JOAQUÍN [facility] [id number] [facility] 11:01:00 23:59:00 LENIN 2020-05-21 2020-05-21 Outpatient JOAQUÍN [facility] [id number] [facility] 11:00:00 11:00:00 LENIN Results This patient has no known results.
[2023-02-13] MEDS ORDERED: KETOROLAC 30 MG/ML INJ ONE (08:36)
[2023-02-13] MEDS ORDERED: dexAMETHasone 10 MG/ML VIAL ONE (08:36)
--- NOTE | 2023-02-13 09:28 | RAD REPORT ---
EXAM DESCRIPTION: RAD - Shoulder Left 2 View - 02/13/2023 8:50 am CLINICAL HISTORY: PAIN COMPARISON: No comparisons TECHNIQUE: Internal and external rotation views of the left shoulder were obtained. FINDINGS: There is no fracture or dislocation. Mild AC and glenohumeral joint degenerative changes. No acute or suspicious findings. IMPRESSION: No acute osseus abnormality. Mild degenerative changes.
--- NOTE | 2023-02-13 09:38 | EDPHYS ---
Physician Documentation [facility] Name: Galen Steele Age: 62 yrs Sex: Male : 1960 Arrival Date: 02/13/2023 Time: 07:45 Bed 19 Private MD: Jb rC T ED Physician John Carr HPI: 02/13 08:07 This 62 yrs old Male presents to ER via Ambulatory with complaints of Shoulder Pain. rn 08:07 The patient or guardian complains of decreased range of motion, an injury, pain. left rn shoulder. 08:08 Onset: The symptoms/episode began/occurred 1 week(s) ago. Modifying factors: the rn symptoms are alleviated by remaining still, The symptoms are aggravated by lifting weight, movement, rotation of arm. Severity of symptoms: At their worst the symptoms were moderate, in the emergency department the symptoms are unchanged. The patient has not experienced similar symptoms in the past. The patient has not recently seen a physician. Pt reports slip and fall on roof 1 week ago, braced himself with left arm, injured left shoulder, did not hear a pop, rested it and improved over the week. This weekend tried to trim branches and caused increased pain to left shoulder and decreased ROM following a pop sound. No weakness. Limited 2/2 pain.. Historical: - Home Meds: 07:55 Lexapro 10 mg Oral tab 1 tab once daily [Active]; Xanax Oral as needed for Anxiety iw [Active]; - PMHx: 07:55 Anxiety; stroke; iw - PSHx: 07:55 hernia repair x 2; iw - Immunization history:: Adult Immunizations up to date. - Family history:: not pertinent. - Hospitalizations: : No recent hospitalization is reported. ROS: 08:08 Constitutional: Negative for fever, chills, and weight loss, Neck: Negative for injury, rn pain, and swelling, Cardiovascular: Negative for chest pain, palpitations, and edema, Respiratory: Negative for shortness of breath, cough, wheezing, and pleuritic chest pain, MS/Extremity: + left shoulder injury and pain Skin: Negative for injury, rash, and discoloration, Neuro: Negative for headache, weakness, and seizure. Exam: 08:10 Constitutional: This is a well developed, well nourished patient who is awake, alert, rn and in no acute distress. Neck: No midline cervical tenderness, no swelling, FROM Cardiovascular: Regular rate and rhythm. No pulse deficits. MS/ Extremity: Pulses equal, no cyanosis. Painful ROM left shoulder especially with lifting arm forward. Neuro: Awake and alert, GCS 15 Vital Signs: 07:52 BP 178 / 98; Pulse 77; Resp 16; Temp 97.6; Pulse Ox 97% on R/A; Weight 72.57 kg; Height iw 5 ft. 7 in. ; Pain 10/10; 07:56 BP 178 / 98; Pulse 77; Resp 16; Temp 97.6; Pulse Ox 97% on R/A; Weight 72.57 kg; Height iw 5 ft. 7 in. ; Pain 10/10; 07:56 Body Mass Index 25.06 (72.57 kg, 170.18 cm) iw 07:52 Pain Scale: Adult iw 07:56 Pain Scale: Adult iw MDM: 07:48 Patient medically screened. rn 09:36 Differential diagnosis: humeral head fracture, glenoid fracture, DJD, tendonitis, rn tendon or ligamentous injury. Data reviewed: vital signs, nurses notes, radiologic studies, plain films, and as a result, I will discharge patient. Independent interpretation of the following test(s) in the Emergency Department X-Ray: My interpretation is Xray left shoulder images neg for fracture/dislocation per my interpretation. Counseling: I had a detailed discussion with the patient and/or guardian regarding: the historical points, exam findings, and any diagnostic results supporting the discharge/admit diagnosis, radiology results, the need for outpatient follow up, to return to the emergency department if symptoms worsen or persist or if there are any questions or concerns that arise at home. Special discussion: I discussed with the patient/guardian in detail that at this point there is no indication for admission to the hospital. It is understood, however, that if the symptoms persist or worsen the patient needs to return immediately for re-evaluation. Further emergent ED testing is not indicated at this point in time. I discussed with the patient/guardian in detail the need to arrange with the PCP or specialist further outpatient testing, MRI, Based on the history and exam findings, there is no indication for further emergent testing or inpatient evaluation. I discussed with the patient/guardian the need to see the orthopedic surgeon for further evaluation of the symptoms. 02/13 08:00 Order name: XRAY Shoulder LEFT 2 view; Complete Time: 09:36 rn 02/13 08:00 Order name: Sling; Complete Time: 09:00 rn Administered Medications: 08:46 Drug: Ketorolac IM 30 mg Route: IM; Site: right gluteus; iw 08:46 Drug: Dexamethasone IM 10 mg Route: IM; Site: right gluteus; iw Disposition Summary: 02/13/23 09:38 Discharge Ordered Location: Home rn Problem: new rn Symptoms: have improved rn Condition: Stable rn Diagnosis - Pain in left shoulder rn - Strain of muscle(s) and tendon(s) of the rotator cuff of left shoulder rn Followup: rn - With: Private Physician - When: As needed - Reason: Recheck today's complaints, Re-evaluation by your physician Discharge Instructions: - Discharge Summary Sheet rn - Joint Pain rn - Shoulder Pain rn - Shoulder Range of Motion Exercises rn Forms: - Medication Reconciliation Form rn - Thank You Letter rn - Antibiotic turning lathe tender - Prescription Opioid Use rn Prescriptions: - Cyclobenzaprine 10 mg Oral Tablet - take 1 tablet by ORAL route every 8 hours As needed; 15 tablet; Refills: 0, rn Product Selection Permitted - Tramadol 50 mg Oral Tablet - take 1 tablet by ORAL route every 8 hours as needed; 12 tablet; Refills: 0, rn Product Selection Permitted - Medrol (Cas) 4 mg Oral Tablets, Dose Pack - take 1 tablet by ORAL route as directed - follow package instructions; 1 rn packet; Refills: 0, Product Selection Permitted Signatures: Dispatcher [employer] Genia Shrestha RN RN iw John Carr MD MD rn teacher: (The following items were deleted from the chart) 08:11 08:10 Constitutional: This is a well developed, well nourished patient who is awake, rn alert, and in no acute distress. rn
--- NOTE | 2023-02-13 09:38 | ER ---
Nurse's Notes [facility] Name: Galen Steele Age: 62 yrs Sex: Male : 1960 Arrival Date: 02/13/2023 Time: 07:45 Bed 19 Private MD: Jb Cr T Diagnosis: Pain in left shoulder;Strain of muscle(s) and tendon(s) of the rotator cuff of left shoulder Presentation: 02/13 07:52 Chief complaint: Patient states: states was on roof slipped and caught self with left iw arm and feel s like he pulled a muscle x1week. Coronavirus screen: Client denies travel out of the [place] in the last 14 days. At this time, the client does not indicate any symptoms associated with coronavirus-19. Ebola Screen: No symptoms or risks identified at this time. Initial Sepsis Screen: Does the patient meet any 2 criteria? No. Patient's initial sepsis screen is negative. Risk Assessment: Do you want to hurt yourself or someone else? Patient reports no desire to harm self or others. Onset of symptoms was February 05, 2023. 07:52 Method Of Arrival: Ambulatory iw 07:52 Acuity: JASON 4 iw Triage Assessment: 07:56 General: Appears in no apparent distress. Pain: Complains of pain in left iw supraclavicular area and left clavicle. Historical: - Home Meds: 07:55 Lexapro 10 mg Oral tab 1 tab once daily [Active]; Xanax Oral as needed for Anxiety iw [Active]; - PMHx: 07:55 Anxiety; stroke; iw - PSHx: 07:55 hernia repair x 2; iw - Immunization history:: Adult Immunizations up to date. - Family history:: not pertinent. - Hospitalizations: : No recent hospitalization is reported. Vital Signs: 07:52 BP 178 / 98; Pulse 77; Resp 16; Temp 97.6; Pulse Ox 97% on R/A; Weight 72.57 kg; Height iw 5 ft. 7 in. ; Pain 10; 07:56 BP 178 / 98; Pulse 77; Resp 16; Temp 97.6; Pulse Ox 97% on R/A; Weight 72.57 kg; Height iw 5 ft. 7 in. ; Pain 10; 07:56 Body Mass Index 25.06 (72.57 kg, 170.18 cm) iw 07:52 Pain Scale: Adult iw 07:56 Pain Scale: Adult iw ED Course: 07:46 Patient arrived in ED. kj1 07:48 Jb Cr MD is Private Physician. am2 07:48 John Carr MD is Attending Physician. rn 07:52 Genia Peres RN is Primary Nurse. iw 07:55 Triage completed. iw 08:52 XRAY Shoulder LEFT 2 view In Process Unspecified. EDMS Administered Medications: 08:46 Drug: Ketorolac IM 30 mg Route: IM; Site: right gluteus; iw 08:46 Drug: Dexamethasone IM 10 mg Route: IM; Site: right gluteus; iw Outcome: 09:38 Discharge ordered by . rn 09:52 Patient left the ED. iw Signatures: Dispatcher [employer] EDMS Genia Peres, John Newton RN, MD MD rn Moreno, Amanda 2 Joann Leong kj1
[2023-02-13 09:57] VITALS: BP 178/98; TEMP 97.6; O2SAT 97
== END 2023-02-13 09:52 | disposition home or self-care (01) ==
LOC: ER 07:45
DX: S46.012A Strain of muscle(s) and tendon(s) of the rotator cuff of left shoulder, initial encounter (principal)
CPT/HCPCS: 96372; 99284; J1100